=== PATIENT | female | born 1990 | race African-American/Black ===

== ENCOUNTER 2016-08-02 16:21 | Emergency (ER) | payer MEDICAID ==
[~2016-08-02] VITALS: Ht 160 cm; Wt 54.5 kg
[~2016-08-02 16:21] MED LIST: ALBU18HF INH; CYCL10TA50 PO; FIORCET; MIRENA; SERT50TA; SERT50TA5 PO; TRAM50TA2 PO
[2016-08-02 16:23] VITALS: BP 117/81
[2016-08-02] MEDS ORDERED: LIDOCAINE 1%-EPI 1:100K, 30ML ONE (18:29)
[2016-08-02] MEDS ORDERED: LIDOCAINE 1%-EPI 1:100K, 20ML SQ ONE (18:30)
[2016-08-02] MEDS ORDERED: CEFAZOLIN 1,000 MG IM ONE (19:00)
[2016-08-02] MEDS ORDERED: HYDROcodone/APAP 5/325 TABLET PO ONE (19:00)
[2016-08-02] MEDS ORDERED: IBUPROFEN 200 MG TABLET PO ONE (19:00)
[2016-08-02] MEDS ORDERED: HYDROcodone/APAP 5/325 TABLET ONE (19:07)
[2016-08-02] MEDS ORDERED: IBUPROFEN 200 MG TABLET ONE (19:07)
[2016-08-02] MEDS ORDERED: CEFAZOLIN 1,000 MG ONE (19:07)
== END 2016-08-02 19:31 | disposition home or self-care (01) ==
LOC: ED 17:34
DX: H00.031 Abscess of right upper eyelid (principal)
CPT/HCPCS: 67700; 96372; 99284; J0690; 10060; 99283

== ENCOUNTER 2016-09-20 20:14 | Emergency (ER) | payer MEDICAID ==
[~2016-09-20] VITALS: Ht 160 cm; Wt 58.1 kg
[2016-09-20 20:16] VITALS: BP 123/78
== END 2016-09-20 21:21 | disposition home or self-care (01) ==
LOC: ED 21:15
DX: L03.031 Cellulitis of right toe (principal); G43.909 Migraine, unspecified, not intractable, without status migrainosus
CPT/HCPCS: 36415; 84550

== ENCOUNTER 2017-01-28 21:03 | Emergency (ER) | payer MEDICAID ==
[~2017-01-28] VITALS: Ht 160 cm; Wt 57.0 kg
[2017-01-28 21:04] VITALS: BP 127/85
[2017-01-28] MEDS ORDERED: HYDROcodone/APAP 5/325 TABLET PO ONE (22:00)
[2017-01-28] MEDS ORDERED: HYDROcodone/APAP 5/325 TABLET ONE (22:04)
== END 2017-01-28 22:16 | disposition home or self-care (01) ==
LOC: ED 22:10
DX: S29.012A Strain of muscle and tendon of back wall of thorax, initial encounter (principal); X50.3XXA Overexertion from repetitive movements, initial encounter; Y93.89 Activity, other specified; Y92.511 Restaurant or cafe as the place of occurrence of the external cause; Y99.8 Other external cause status
CPT/HCPCS: 99282

== ENCOUNTER 2017-02-03 22:18 | Emergency (ER) | payer MEDICAID ==
[~2017-02-03] VITALS: Ht 160 cm; Wt 57.0 kg
[2017-02-03] MEDS ORDERED: DIPHENHYDRAMINE 50 MG/ML, 1ML ONE (22:59)
[2017-02-03] MEDS ORDERED: PROCHLORPERAZINE 5 MG/ML, 2ML ONE (22:59)
[2017-02-03] MEDS ORDERED: KETOROLAC 30 MG/1 ML ONE (22:59)
[2017-02-03 23:00] LABS: HEMATOCRIT 41.1 % (34.6-47.8); HEMOGLOBIN 13.3 g/dL (11.7-16.4)
[2017-02-03] MEDS ORDERED: SODIUM CHLORIDE FLUSH 10ML SYR IVF ONE (23:00)
[2017-02-03] MEDS ORDERED: KETOROLAC 30 MG/1 ML IVPush ONE (23:00)
[2017-02-03] MEDS ORDERED: DIPHENHYDRAMINE 50 MG/ML, 1ML IVPush ONE (23:00)
[2017-02-03] MEDS ORDERED: PROCHLORPERAZINE 5 MG/ML, 2ML IVPush ONE (23:00)
[2017-02-03] MEDS ORDERED: SODIUM CHLORIDE 0.9% 1,000ML IVBOLUS ONE (23:00)
[2017-02-03 23:09] LABS: ASPARTATE AMINO TRANSFERASE 17 U/L (15-37); BLOOD UREA NITROGEN 12 mg/dL (7-18)
[2017-02-04 00:39] VITALS: BP 124/84
== END 2017-02-04 00:41 | disposition home or self-care (01) ==
LOC: ED 23:21
DX: R10.84 Generalized abdominal pain (principal); R11.2 Nausea with vomiting, unspecified; R51 Headache; M19.90 Unspecified osteoarthritis, unspecified site; J45.909 Unspecified asthma, uncomplicated
CPT/HCPCS: 36415; 80053; 81003; 83690; 84703; 85025; 96361; 96374; 96375; 99284; J0780; J1200; J1885; J7030

== ENCOUNTER 2017-04-25 17:36 | Emergency (ER) | payer MEDICAID ==
[~2017-04-25] VITALS: Ht 167.6 cm; Wt 58.4 kg
[2017-04-25] MEDS ORDERED: ONDANSETRON 2MG/ML, 2ML IVPush ONE (18:00)
[2017-04-25] MEDS ORDERED: SODIUM CHLORIDE 0.9% 1,000ML IVBOLUS ONE (18:00)
[2017-04-25] MEDS ORDERED: MORPHINE SULFATE 4 MG/ML, 1ML IVPush PRN (18:00)
[2017-04-25] MEDS ORDERED: SODIUM CHLORIDE FLUSH 10ML SYR IVF ONE (18:00)
[2017-04-25] MEDS ORDERED: MORPHINE SULFATE 4 MG/ML, 1ML ONE (18:08)
[2017-04-25] MEDS ORDERED: ONDANSETRON 2MG/ML, 2ML ONE (18:09)
[2017-04-25 18:14] LABS: HEMATOCRIT 43.6 % (34.6-47.8); HEMOGLOBIN 14.3 g/dL (11.7-16.4); WHITE BLOOD COUNT 6.4 x10^3/uL (3.4-10)
[2017-04-25 18:27] LABS: BLOOD UREA NITROGEN 13 mg/dL (7-18)
[2017-04-25 19:57] LABS: PATH.CAST-FLAG NOT PRESENT; SPERM-FLAG NOT PRESENT; SRC-FLAG NOT PRESENT; XTAL-FLAG NOT PRESENT; YLC-FLAG NOT PRESENT
[2017-04-25 20:54] VITALS: BP 119/83
== END 2017-04-25 20:56 | disposition home or self-care (01) ==
LOC: ED 20:20
DX: R10.32 Left lower quadrant pain (principal); R19.7 Diarrhea, unspecified; G43.909 Migraine, unspecified, not intractable, without status migrainosus; G89.29 Other chronic pain
CPT/HCPCS: 36415; 76830; 80048; 81001; 82040; 84703; 85025; 96361; 96374; 96375; 99285; J2405; J7030

== ENCOUNTER 2017-07-23 20:32 | Emergency (ER) | payer MEDICAID ==
[~2017-07-23] VITALS: Ht 160 cm; Wt 56.6 kg
[2017-07-23] MEDS ORDERED: SUMA100T3 PO (22:07)
[2017-07-23] MEDS ORDERED: NORT25CA PO (22:07)
[2017-07-23 22:22] LABS: CULTURE INDICATED? YES; MICROSCOPIC INDICATED
[2017-07-23] MEDS ORDERED: ONDANSETRON ODT 8 MG PO ONE (22:30)
[2017-07-23] MEDS ORDERED: ONDANSETRON ODT 8 MG ONE (22:31)
[2017-07-23 23:18] VITALS: BP 114/78
[2017-07-23 23:19] LABS: HCG UR SG < 1.005 (1.003-1.030)
== END 2017-07-23 23:20 | disposition home or self-care (01) ==
LOC: ED 22:52
DX: N30.90 Cystitis, unspecified without hematuria (principal); G43.909 Migraine, unspecified, not intractable, without status migrainosus; J45.909 Unspecified asthma, uncomplicated
CPT/HCPCS: 81001; 81025; 87077; 87086; 99284; Q0162; 87186

== ENCOUNTER 2017-09-11 12:11 | Emergency (ER) | payer MEDICAID ==
[~2017-09-11] VITALS: Ht 160 cm; Wt 55.6 kg
[~2017-09-11 12:11] MED LIST changes: +NORT25CA PO; +SUMA100T3 PO
[2017-09-11] MEDS ORDERED: OXYcodone/APAP 10/325MG TABLET ONE (13:15)
[2017-09-11] MEDS ORDERED: ONDANSETRON ODT 4 MG ONE (13:15)
[2017-09-11] MEDS ORDERED: KETOROLAC 30 MG/1 ML ONE (13:15)
[2017-09-11] MEDS ORDERED: ONDANSETRON ODT 4 MG PO ONE (13:30)
[2017-09-11] MEDS ORDERED: OXYcodone/APAP 10/325MG TABLET PO ONE (13:30)
[2017-09-11] MEDS ORDERED: KETOROLAC 60 MG/2 ML IM ONE (13:30)
[2017-09-11 14:11] VITALS: BP 129/89
== END 2017-09-11 14:25 | disposition home or self-care (01) ==
LOC: ED 14:18
DX: R10.9 Unspecified abdominal pain (principal); R11.0 Nausea; G89.29 Other chronic pain; G43.909 Migraine, unspecified, not intractable, without status migrainosus
CPT/HCPCS: 96372; 99283; J1885; Q0162

== ENCOUNTER 2017-09-21 13:02 | Emergency (ER) | payer MEDICAID ==
[~2017-09-21] VITALS: Ht 160 cm; Wt 56.3 kg
[2017-09-21] MEDS ORDERED: KETOROLAC 30 MG/1 ML IM ONE (16:30)
[2017-09-21 16:44] LABS: BASOPHILS # (AUTO) 0.03 x10^3/uL (0-0.1); BASOPHILS % (AUTO) 1 % (0-1); EOSINOPHILS # (AUTO) 0.04 x10^3/uL (0-0.4); EOSINOPHILS % (AUTO) 1 % (1-7); LYMPHOCYTES # (AUTO) 1.91 x10^3/uL (1-3.4); LYMPHOCYTES % (AUTO) 31 % (22-44); MD NO; MEAN CORPUSCULAR HEMOGLOBIN 25.9 pg (27.0-34.8); MEAN CORPUSCULAR HGB CONC 32.3 g/dL (32.4-35.8); MEAN CORPUSCULAR VOLUME 80.1 fL (80-100); MEAN PLATELET VOLUME 8.7 fL (7.4-10.4); MONOCYTES # (AUTO) 0.42 x10^3/uL (0.2-0.8); MONOCYTES % (AUTO) 7 % (2-9); NEUTROPHILS # (AUTO) 3.82 x10^3/uL (1.8-6.8); NEUTROPHILS % (AUTO) 61 % (42-75); PLATELET COUNT 290 x10^3/uL (130-400); RED BLOOD COUNT 5.04 x10^6/uL (3.82-5.3)
[2017-09-21 16:55] LABS: ALANINE AMINOTRANSFERASE 13 U/L (12-78); ALBUMIN 3.9 g/dL (3.4-5.0); ANION GAP 8 mmol/L (5-15); CALCIUM 9.5 mg/dL (8.5-10.1); CHLORIDE 105 mmol/L (98-107)
[2017-09-21 16:59] LABS: ALKALINE PHOSPHATASE 72 U/L (45-117); BILIRUBIN,TOTAL 0.3 mg/dL (0.2-1.0); TOTAL PROTEIN 8.5 g/dL (6.4-8.2)
[2017-09-21] MEDS ORDERED: KETOROLAC 30 MG/1 ML ONE (17:17)
[2017-09-21 17:25] LABS: CULTURE INDICATED? NO; MICROSCOPIC AUTO
[2017-09-21 17:59] VITALS: BP 119/80
== END 2017-09-21 18:14 | disposition home or self-care (01) ==
LOC: ED 18:00
DX: R10.84 Generalized abdominal pain (principal); R10.30 Lower abdominal pain, unspecified; M19.90 Unspecified osteoarthritis, unspecified site; G89.29 Other chronic pain; M79.7 Fibromyalgia; J45.909 Unspecified asthma, uncomplicated; G43.909 Migraine, unspecified, not intractable, without status migrainosus
CPT/HCPCS: 36415; 76830; 80053; 81001; 83690; 84703; 85025; 96372; 99285; J1885

== ENCOUNTER 2017-10-30 21:52 | Emergency (ER) | payer MEDICAID ==
[~2017-10-30] VITALS: Ht 160 cm; Wt 53.4 kg
[2017-10-30 21:56] VITALS: BP 124/85
== END 2017-10-30 22:42 | disposition home or self-care (01) ==
LOC: ED 22:15
DX: H00.022 Hordeolum internum right lower eyelid (principal); M79.7 Fibromyalgia; G89.29 Other chronic pain
CPT/HCPCS: 99283

== ENCOUNTER 2017-11-18 17:49 | Emergency (ER) | payer MEDICAID ==
[~2017-11-18] VITALS: Ht 160 cm; Wt 51.6 kg
[2017-11-18 17:53] VITALS: BP 121/78
== END 2017-11-18 18:57 | disposition home or self-care (01) ==
LOC: ED 18:51
DX: L02.412 Cutaneous abscess of left axilla (principal); G43.909 Migraine, unspecified, not intractable, without status migrainosus
CPT/HCPCS: 99283

== ENCOUNTER → 2018-01-02 | Outpatient (CLI) | payer MEDICAID ==
[~2018-01-02] MED LIST changes: +GABA100C PO; +GABAPENTIN PO; +IBUP200T49 PO; +OXYC-302 PO; +SUMA100T4 PO
== END | disposition home or self-care (01) ==
LOC: STAR 10:26
PROVIDERS: ATTEND Obstetrics & Gynecology
DX: Z02.9 Encounter for administrative examinations, unspecified (principal)

== ENCOUNTER 2018-01-11 05:42 | Observation (INO) | payer MEDICAID ==
[~2018-01-11] VITALS: Ht 160 cm; Wt 59.6 kg
[~2018-01-11 05:42] MED LIST changes: -IBUP200T49 PO; -OXYC-302 PO
[2018-01-11 06:24] VITALS: BP 123/87
[2018-01-11] MEDS ORDERED: LACTATED RINGERS 1,000 ML IV SCH (06:27)
[2018-01-11 06:58] LABS: HCG UR SG 1.016 (1.003-1.030)
[2018-01-11] MEDS ORDERED: VASOPRESSIN 20 UNIT/ML, 1ML ONE (07:07)
[2018-01-11] MEDS ORDERED: FENTANYL PF 100 MCG/2ML ONE ×2 (07:07→08:48)
[2018-01-11] MEDS ORDERED: SILVER NITRATE STICK TP ONE (07:07)
[2018-01-11] MEDS ORDERED: MIDAZOLAM 1 MG/ML, 2ML ONE (07:07)
[2018-01-11] MEDS ORDERED: KETAMINE 10 MG/ML, 20ML ONE (07:07)
[2018-01-11] MEDS ORDERED: BUPIVACAINE/PF-EPI 0.25% 1:200K ONE (07:07)
[2018-01-11] MEDS ORDERED: NEOSTIGMINE 1 MG/ML, 10ML ONE (07:27)
[2018-01-11] MEDS ORDERED: GLYCOPYRROLATE 0.2MG/1ML, 5ML ONE (07:27)
[2018-01-11] MEDS ORDERED: ONDANSETRON 2MG/ML, 2ML ONE (07:27)
[2018-01-11] MEDS ORDERED: KETOROLAC 30 MG/1 ML ONE (07:27)
[2018-01-11] MEDS ORDERED: ROCURONIUM 10 MG/ML,10ML ONE (07:27)
[2018-01-11] MEDS ORDERED: SUCCINYLCHOLINE 20 MG/ML, 10ML ONE (07:27)
[2018-01-11] MEDS ORDERED: DEXAMETHASONE 4 MG/ML, 1ML ONE (07:27)
[2018-01-11] MEDS ORDERED: PROPOFOL 10 MG/ML, 20ML ONE (07:27)
[2018-01-11] MEDS ORDERED: CEFAZOLIN 1,000 MG ONE (07:27)
[2018-01-11] MEDS ORDERED: GABAPENTIN 300 MG CAPSULE PO ONE (07:30)
[2018-01-11] MEDS ORDERED: METOCLOPRAMIDE 10MG TABLET PO ONE (07:30)
[2018-01-11] MEDS ORDERED: FAMOTIDINE 20 MG TABLET PO ONE (07:30)
[2018-01-11] MEDS ORDERED: ACETAMINOPHEN 500 MG TABLET PO ONE (07:30)
[2018-01-11] MEDS ORDERED: MEPERIDINE/PF 25MG/0.5ML IVPush PRN (08:00)
[2018-01-11] MEDS ORDERED: PROMETHAZINE 25 MG/ML, 1ML IV PRN (08:00)
[2018-01-11] MEDS ORDERED: ALBUTEROL SULFATE 2.5 MG/3 ML NPPB PRN (08:00)
[2018-01-11] MEDS: OXYcodone 5 MG/5 ML ORAL.SOL UDC PO PRN ×2 (08:48→09:08)
[2018-01-11] MEDS ORDERED: OXYcodone 5 MG/5 ML ORAL.SOL UDC ONE ×2 (08:48→09:07)
[2018-01-11] MEDS: FENTANYL PF 100 MCG/2ML IV PRN ×2 (08:50→09:05)
[2018-01-11] MEDS ORDERED: LORazepam 2 MG/ML, 1ML ONE (08:58)
[2018-01-11] MEDS: LORazepam 2 MG/ML, 1ML IVPush PRN ×2 (09:00→09:12)
[2018-01-11] MEDS ORDERED: MEPERIDINE/PF 50 MG/ML ONE (09:07)
[2018-01-11] MEDS ORDERED: OXYcodone/APAP 5/325MG TABLET PO PRN (13:00)
[2018-01-11 16:06] LABS: BASOPHILS % (AUTO) 0 % (0-1); EOSINOPHILS % (AUTO) 0 % (1-7); LYMPHOCYTES # (AUTO) 0.51 x10^3/uL (1-3.4); LYMPHOCYTES % (AUTO) 6 % (22-44); MD NO; MEAN CORPUSCULAR HEMOGLOBIN 27.6 pg (27.0-34.8); MEAN CORPUSCULAR HGB CONC 32.9 g/dL (32.4-35.8); MEAN PLATELET VOLUME 8.5 fL (7.4-10.4); MONOCYTES # (AUTO) 0.04 x10^3/uL (0.2-0.8); MONOCYTES % (AUTO) 0 % (2-9); NEUTROPHILS # (AUTO) 8.54 x10^3/uL (1.8-6.8); NEUTROPHILS % (AUTO) 94 % (42-75); PLATELET COUNT 260 x10^3/uL (130-400); RED BLOOD COUNT 4.02 x10^6/uL (3.82-5.3)
[2018-01-11 16:08] LABS: ANION GAP 8 mmol/L (5-15); CALCIUM 8.5 mg/dL (8.5-10.1); CHLORIDE 108 mmol/L (98-107); CREATININE 0.93 mg/dL (0.55-1.02)
[2018-01-11] MEDS ORDERED: ONDANSETRON ODT 4 MG PO PRN (16:30)
[2018-01-11] MEDS ORDERED: LABETALOL 5MG/ML, 20ML IVPush PRN (16:30)
[2018-01-11] MEDS ORDERED: IBUPROFEN 600 MG TABLET ONE (16:39)
[2018-01-11] MEDS ORDERED: OXYcodone/APAP 5/325MG TABLET ONE (16:39)
[2018-01-11] MEDS ORDERED: OXYcodone/APAP 5/325MG TABLET PO ONE (17:00)
[2018-01-11] MEDS ORDERED: IBUPROFEN 200 MG TABLET PO ONE (17:00)
[2018-01-11 18:30] VITALS: BP 111/58
[2018-01-11 19:00] LABS: AMPHETAMINE SCREEN, URINE Negative (Negative); BARBITURATE SCREEN, URINE Negative (Negative); BENZODIAZEPINE SCREEN, URINE Positive (Negative); CANNABINOID SCREEN, URINE Negative (Negative); COCAINE SCREEN, URINE Negative (Negative); METHADONE SCREEN, URINE Negative (Negative); OPIATE SCREEN, URINE Negative (Negative)
[2018-01-11 20:10] VITALS: BP 99/58
[2018-01-11] MEDS: morphine SULFATE 10 MG/ML, 1ML IVPush PRN (20:29)
[2018-01-11] MEDS: NS + 20MEQ KCL 1,000 ML IV SCH (20:29)
[2018-01-11 21:27] LABS: AMPHETAMINE SCREEN, URINE Negative (Negative); BARBITURATE SCREEN, URINE Negative (Negative); BENZODIAZEPINE SCREEN, URINE Positive (Negative); CANNABINOID SCREEN, URINE Negative (Negative); COCAINE SCREEN, URINE Negative (Negative); METHADONE SCREEN, URINE Negative (Negative); OPIATE SCREEN, URINE Positive (Negative)
[2018-01-12 02:00] VITALS: BP 106/58
[2018-01-12] MEDS: NS + 20MEQ KCL 1,000 ML IV SCH ×2 (03:05→10:50)
[2018-01-12] MEDS: morphine SULFATE 10 MG/ML, 1ML IVPush PRN ×3 (05:46→09:45)
[2018-01-12 08:43] VITALS: BP 124/85
[2018-01-12] MEDS ORDERED: SUMATRIPTAN 100 MG TABLET PO PRN (10:00)
[2018-01-12] MEDS ORDERED: NORTRIPTYLINE 25 MG CAPSULE PO SCH (10:00)
[2018-01-12 10:55] LABS: FREE T4 (FREE THYROXINE) 1.11 ng/dL (0.76-1.46); THYROID STIMULATING HORMONE 0.558 mIU/L (0.358-3.740)
[2018-01-12] MEDS ORDERED: IBUP200T49 PO (13:33)
[2018-01-12] MEDS ORDERED: OXYC-302 PO (13:33)
[2018-01-12 13:37] VITALS: BP 123/86
[2018-01-12] MEDS ORDERED: GABAPENTIN 100 MG CAPSULE PO SCH (16:00)
== END 2018-01-12 14:07 | disposition home or self-care (01) ==
LOC: OUT 05:42 → ORIP 16:14 → 4WST 17:18
PROVIDERS: ADMIT Obstetrics & Gynecology; ATTEND Obstetrics & Gynecology
DX: N83.291 Other ovarian cyst, right side (principal); N80.1 Endometriosis of ovary; N80.0 Endometriosis of uterus; J45.909 Unspecified asthma, uncomplicated; R00.0 Tachycardia, unspecified; F41.9 Anxiety disorder, unspecified; I10 Essential (primary) hypertension; N92.6 Irregular menstruation, unspecified
CPT/HCPCS: 36415; 58662; 80048; 80307; 81025; 82533; 83735; 84439; 84443; 84481; 85025; 85379; 93005; 96374; 96376; G0378; J0330; J0690; J1100; J1885; J2060; J2175; J2250; J2270; J2405; J2704; J2710; J3010; J3480; J3490

== ENCOUNTER 2018-01-27 18:31 | Emergency (ER) | payer MEDICAID ==
[~2018-01-27] VITALS: Ht 160 cm; Wt 52.0 kg
[~2018-01-27 18:31] MED LIST changes: +IBUP200T49 PO; +OXYC-302 PO
[2018-01-27] MEDS ORDERED: CEFDINIR 125 MG/5 ML, ORAL SUSP ONE (18:42)
[2018-01-27] MEDS ORDERED: SODIUM CHLORIDE 0.9% 1,000ML IVBOLUS ONE (19:00)
[2018-01-27 19:07] LABS: BASOPHILS # (AUTO) 0.03 x10^3/uL (0-0.1); BASOPHILS % (AUTO) 0 % (0-1); EOSINOPHILS # (AUTO) 0.11 x10^3/uL (0-0.4); EOSINOPHILS % (AUTO) 1 % (1-7); LYMPHOCYTES # (AUTO) 1.91 x10^3/uL (1-3.4); LYMPHOCYTES % (AUTO) 24 % (22-44); MD NO; MEAN CORPUSCULAR HEMOGLOBIN 28.7 pg (27.0-34.8); MEAN CORPUSCULAR HGB CONC 33.4 g/dL (32.4-35.8); MEAN CORPUSCULAR VOLUME 85.9 fL (80-100); MEAN PLATELET VOLUME 8.5 fL (7.4-10.4); MONOCYTES # (AUTO) 1.02 x10^3/uL (0.2-0.8); MONOCYTES % (AUTO) 13 % (2-9); NEUTROPHILS # (AUTO) 4.91 x10^3/uL (1.8-6.8); NEUTROPHILS % (AUTO) 62 % (42-75); PLATELET COUNT 261 x10^3/uL (130-400); RED BLOOD COUNT 4.41 x10^6/uL (3.82-5.3)
[2018-01-27 19:14] LABS: ALBUMIN 3.4 g/dL (3.4-5.0); ANION GAP 8 mmol/L (5-15); CALCIUM 8.5 mg/dL (8.5-10.1); CHLORIDE 111 mmol/L (98-107); CREATININE 0.93 mg/dL (0.55-1.02)
[2018-01-27 19:23] LABS: TROPONIN I < 0.015 ng/mL (0.000-0.045)
[2018-01-27 19:47] VITALS: BP 126/88
== END 2018-01-27 20:35 | disposition home or self-care (01) ==
LOC: ED 19:21
DX: R00.0 Tachycardia, unspecified (principal); R00.2 Palpitations; M54.9 Dorsalgia, unspecified; G89.29 Other chronic pain; G43.909 Migraine, unspecified, not intractable, without status migrainosus; F32.9 Major depressive disorder, single episode, unspecified; J45.909 Unspecified asthma, uncomplicated; F41.1 Generalized anxiety disorder
CPT/HCPCS: 36415; 71275; 80048; 82040; 84484; 84703; 85025; 96360; 99285; J7030

== ENCOUNTER 2018-01-28 01:56 | Emergency (ER) | payer MEDICAID ==
[~2018-01-28] VITALS: Ht 160 cm; Wt 52.0 kg
[2018-01-28 03:17] LABS: BASOPHILS # (AUTO) 0.04 x10^3/uL (0-0.1); BASOPHILS % (AUTO) 1 % (0-1); EOSINOPHILS # (AUTO) 0.14 x10^3/uL (0-0.4); EOSINOPHILS % (AUTO) 2 % (1-7); LYMPHOCYTES # (AUTO) 2.69 x10^3/uL (1-3.4); LYMPHOCYTES % (AUTO) 31 % (22-44); MD NO; MEAN CORPUSCULAR HEMOGLOBIN 28.3 pg (27.0-34.8); MEAN CORPUSCULAR HGB CONC 32.6 g/dL (32.4-35.8); MEAN CORPUSCULAR VOLUME 86.7 fL (80-100); MEAN PLATELET VOLUME 8.1 fL (7.4-10.4); MONOCYTES # (AUTO) 0.95 x10^3/uL (0.2-0.8); MONOCYTES % (AUTO) 11 % (2-9); NEUTROPHILS % (AUTO) 56 % (42-75); PLATELET COUNT 258 x10^3/uL (130-400)
[2018-01-28 03:28] LABS: ALBUMIN 3.3 g/dL (3.4-5.0); ANION GAP 4 mmol/L (5-15); CALCIUM 8.6 mg/dL (8.5-10.1); CHLORIDE 110 mmol/L (98-107); CREATININE 0.78 mg/dL (0.55-1.02)
[2018-01-28 03:33] LABS: TROPONIN I < 0.015 ng/mL (0.000-0.045)
[2018-01-28 04:01] VITALS: BP 120/80
== END 2018-01-28 04:13 | disposition home or self-care (01) ==
LOC: ED 02:54
DX: R07.2 Precordial pain (principal); F32.9 Major depressive disorder, single episode, unspecified; M19.90 Unspecified osteoarthritis, unspecified site
CPT/HCPCS: 36415; 80048; 82040; 83735; 84484; 84703; 85025; 93005; 99285

== ENCOUNTER 2018-02-15 02:00 | Emergency (ER) | payer MEDICAID ==
[~2018-02-15] VITALS: Ht 160 cm; Wt 56.0 kg
[2018-02-15 02:56] LABS: ALANINE AMINOTRANSFERASE 13 U/L (12-78); ALBUMIN 3.6 g/dL (3.4-5.0); ANION GAP 5 mmol/L (5-15); BASOPHILS # (AUTO) 0.03 x10^3/uL (0-0.1); BASOPHILS % (AUTO) 1 % (0-1); CALCIUM 8.4 mg/dL (8.5-10.1); CHLORIDE 110 mmol/L (98-107); CREATININE 0.76 mg/dL (0.55-1.02); EOSINOPHILS # (AUTO) 0.07 x10^3/uL (0-0.4); EOSINOPHILS % (AUTO) 1 % (1-7); LYMPHOCYTES # (AUTO) 1.67 x10^3/uL (1-3.4); LYMPHOCYTES % (AUTO) 27 % (22-44); MD NO; MEAN CORPUSCULAR HEMOGLOBIN 28.3 pg (27.0-34.8); MEAN CORPUSCULAR HGB CONC 32.8 g/dL (32.4-35.8); MEAN CORPUSCULAR VOLUME 86.5 fL (80-100); MEAN PLATELET VOLUME 9.3 fL (7.4-10.4); MONOCYTES # (AUTO) 0.73 x10^3/uL (0.2-0.8); MONOCYTES % (AUTO) 12 % (2-9); NEUTROPHILS # (AUTO) 3.78 x10^3/uL (1.8-6.8); NEUTROPHILS % (AUTO) 60 % (42-75); PLATELET COUNT 234 x10^3/uL (130-400); RED BLOOD COUNT 4.85 x10^6/uL (3.82-5.3)
[2018-02-15 03:01] LABS: ALKALINE PHOSPHATASE 75 U/L (45-117); BILIRUBIN,TOTAL 0.2 mg/dL (0.2-1.0)
[2018-02-15 03:25] LABS: CULTURE INDICATED? NO; MICROSCOPIC NOT IND
[2018-02-15] MEDS ORDERED: ONDANSETRON ODT 4 MG PO ONE (03:30)
[2018-02-15] MEDS ORDERED: ONDANSETRON ODT 4 MG ONE (03:32)
[2018-02-15 03:37] VITALS: BP 119/71
== END 2018-02-15 04:11 | disposition home or self-care (01) ==
LOC: ED 03:26
DX: R10.30 Lower abdominal pain, unspecified (principal); N93.9 Abnormal uterine and vaginal bleeding, unspecified; M54.5 Low back pain; G89.29 Other chronic pain
CPT/HCPCS: 36415; 76830; 80053; 81003; 84703; 85025; 99285; Q0162

== ENCOUNTER 2018-02-23 16:57 | Emergency (ER) | payer MEDICAID ==
[~2018-02-23] VITALS: Ht 160 cm; Wt 53.3 kg
[2018-02-23] MEDS ORDERED: SODIUM CHLORIDE FLUSH 10ML SYR IVF ONE (18:00)
[2018-02-23] MEDS ORDERED: KETOROLAC 30 MG/1 ML IVPush ONE (18:00)
[2018-02-23] MEDS ORDERED: METOCLOPRAMIDE 5 MG/ML, 2ML IVPush ONE (18:00)
[2018-02-23] MEDS ORDERED: SODIUM CHLORIDE 0.9% 1,000ML IVBOLUS ONE (18:00)
[2018-02-23] MEDS ORDERED: DIPHENHYDRAMINE 50 MG/ML, 1ML IVPush ONE (18:00)
[2018-02-23] MEDS ORDERED: KETOROLAC 30 MG/1 ML ONE (18:34)
[2018-02-23] MEDS ORDERED: METOCLOPRAMIDE 5 MG/ML, 2ML ONE (18:34)
[2018-02-23] MEDS ORDERED: DIPHENHYDRAMINE 50 MG/ML, 1ML ONE (18:58)
[2018-02-23] MEDS ORDERED: BICILLIN-LA 1,200,000 UNITS/2 ML IM ONE (19:30)
[2018-02-23 21:03] VITALS: BP 109/69
== END 2018-02-23 21:28 | disposition home or self-care (01) ==
LOC: ED 18:32
DX: J02.0 Streptococcal pharyngitis (principal); G43.C0 Periodic headache syndromes in child or adult, not intractable
CPT/HCPCS: 87880; 96372; 96374; 96375; 99285; J0561; J1200; J1885; J2765; J7030

== ENCOUNTER 2018-03-30 04:43 | Emergency (ER) | payer MEDICAID ==
[~2018-03-30] VITALS: Ht 160 cm; Wt 58.0 kg
[2018-03-30 04:44] VITALS: BP 132/92
[2018-03-30] MEDS ORDERED: DEPAKOTE (04:49)
== END 2018-03-30 05:28 | disposition home or self-care (01) ==
LOC: ED 05:22
DX: T40.4X1A Poisoning by other synthetic narcotics, accidental (unintentional), initial encounter (principal); F32.9 Major depressive disorder, single episode, unspecified; Y92.89 Other specified places as the place of occurrence of the external cause
CPT/HCPCS: 99281

== ENCOUNTER 2018-05-15 01:42 | Emergency (ER) | payer MEDICAID ==
[~2018-05-15] VITALS: Ht 160 cm; Wt 59.7 kg
[~2018-05-15 01:42] MED LIST changes: +DEPAKOTE; -NORT25CA PO; +NORT25CA78 PO
[2018-05-15 01:45] VITALS: BP 132/87
--- NOTE | 2018-05-15 01:54 | NUR ---
CALLED [facility] ON PT. BEHALF; THEY WILL SENT A UNIT OVER SOON ABLE PER DISPATCH.
--- NOTE | 2018-05-15 02:05 | NUR ---
PT TO ROOM PA TO BEDSIDE. PT AWAITING [facility]
--- NOTE | 2018-05-15 02:36 | NUR ---
[facility] TO BEDSIDE.
== END 2018-05-15 03:24 | disposition home or self-care (01) ==
LOC: ED 01:53
DX: T74.21XA Adult sexual abuse, confirmed, initial encounter (principal); F32.9 Major depressive disorder, single episode, unspecified; J45.909 Unspecified asthma, uncomplicated; M19.90 Unspecified osteoarthritis, unspecified site; Z87.42 Personal history of other diseases of the female genital tract; Y07.9 Unspecified perpetrator of maltreatment and neglect
CPT/HCPCS: 99284

== ENCOUNTER 2018-05-28 17:25 | Emergency (ER) | payer MEDICAID ==
[~2018-05-28] VITALS: Ht 162.6 cm; Wt 56.0 kg
[~2018-05-28 17:25] MED LIST changes: +SERT50TA28 PO; -SERT50TA5 PO
--- NOTE | 2018-05-28 18:01 | NUR ---
pa to bedside for assessment.
--- NOTE | 2018-05-28 18:09 | NUR ---
PT TO ED FOR BILATERAL CHEST PAIN EPISODES X 3 DAYS. PAIN WORSE WITH DEEP BREATHS AND MOVEMENT. NO RELIEVEING FACTORS. INHALER HAD NO EFFECT. CONNECTED TO MONITORS. VSS. LABS DRAWN. AWAITING RESULTS. CALL LIGHT WITHIN REACH.
[2018-05-28 18:12] LABS: BASOPHILS # (AUTO) 0.05 x10^3/uL (0-0.1); BASOPHILS % (AUTO) 1 % (0-1); EOSINOPHILS # (AUTO) 0.01 x10^3/uL (0-0.4); EOSINOPHILS % (AUTO) 0 % (1-7); LYMPHOCYTES % (AUTO) 22 % (22-44); MD NO; MEAN CORPUSCULAR HEMOGLOBIN 28.6 pg (27.0-34.8); MEAN CORPUSCULAR HGB CONC 32.6 g/dL (32.4-35.8); MEAN CORPUSCULAR VOLUME 87.6 fL (80-100); MEAN PLATELET VOLUME 9.3 fL (7.4-10.4); MONOCYTES # (AUTO) 0.93 x10^3/uL (0.2-0.8); MONOCYTES % (AUTO) 11 % (2-9); NEUTROPHILS # (AUTO) 5.58 x10^3/uL (1.8-6.8); NEUTROPHILS % (AUTO) 67 % (42-75); PLATELET COUNT 277 x10^3/uL (130-400); RED CELL DISTRIBUTION WIDTH 17.1 % (9.6-15.2)
[2018-05-28] MEDS ORDERED: ASPIRIN 81 MG TABLET CHEW ONE (18:13)
[2018-05-28 18:19] LABS: ALBUMIN 3.6 g/dL (3.4-5.0); ANION GAP 8 mmol/L (5-15); CALCIUM 8.7 mg/dL (8.5-10.1); CHLORIDE 106 mmol/L (98-107)
[2018-05-28 18:23] LABS: TROPONIN I < 0.015 ng/mL (0.000-0.045)
--- NOTE | 2018-05-28 18:23 | NUR ---
ua collected and sent. iv placed. pt resting in bed wtih family at bedside. call light within reach. vss.
[2018-05-28] MEDS ORDERED: ASPIRIN 81 MG TABLET CHEW PO ONE (18:30)
[2018-05-28 18:40] LABS: HCG UR SG 1.012 (1.003-1.030); MICROSCOPIC AUTO
[2018-05-28 18:41] LABS: CULTURE INDICATED? YES
--- NOTE | 2018-05-28 18:57 | NUR ---
pt to cta
--- NOTE | 2018-05-28 18:59 | NUR ---
pt back from ct
[2018-05-28] MEDS ORDERED: PLEASE ENTER WEIGHT MC SCH (19:00)
[2018-05-28] MEDS ORDERED: KETOROLAC 30 MG/1 ML IVPush ONE (19:00)
[2018-05-28] MEDS ORDERED: KETOROLAC 30 MG/1 ML ONE (19:01)
[2018-05-28] MEDS ORDERED: OMNIPAQUE 350 MG/ML, 100ML BOTTLE ONE (19:09)
[2018-05-28 19:15] VITALS: BP 120/81
--- NOTE | 2018-05-28 19:16 | NUR ---
PT MEDICATED PER JUL. VSS AT THIS TIME, PT REPORTING PAIN 8/10 WITH DEEP BREATHING. FAMILY AT BEDSIDE. CALL LIGHT WITHIN REACH. AWAITING TEST RESULTS AT THIS TIME
--- NOTE | 2018-05-28 19:26 | NUR ---
PA TO BEDSIDE TO UPDATE PT ON POC
--- NOTE | 2018-05-28 19:29 | NUR ---
ALL RESULTS BACK AT THIS TIME, CHART UP FOR RECHECK
[2018-05-28] MEDS ORDERED: ALBUTEROL/IPRATROPIUM 2.5MG/0.5MG, 3 ML ONE (19:55)
--- NOTE | 2018-05-28 19:58 | NUR ---
RT TO BEDSIDE FOR TX.
[2018-05-28] MEDS ORDERED: methylPREDNISolone SOD SUCC 125 MG/2 ML IVPush SCH (20:00)
[2018-05-28] MEDS ORDERED: ALBUTEROL/IPRATROPIUM 2.5MG/0.5MG, 3 ML NEB ONE (20:00)
[2018-05-28] MEDS ORDERED: METHOCARBAMOL 750 MG TABLET PO ONE (20:00)
[2018-05-28] MEDS ORDERED: METHOCARBAMOL 750 MG TABLET ONE (20:01)
[2018-05-28] MEDS ORDERED: methylPREDNISolone SOD SUCC 125 MG/2 ML ONE (20:02)
== END 2018-05-28 20:16 | disposition home or self-care (01) ==
LOC: ED 17:51
DX: J45.41 Moderate persistent asthma with (acute) exacerbation (principal); R09.1 Pleurisy
CPT/HCPCS: 36415; 71045; 71275; 80048; 81001; 81025; 82040; 83880; 84484; 85025; 87086; 93005; 94640; 96374; 96375; 99284; J1885; J2930; Q9967

== ENCOUNTER 2018-06-01 23:35 | Emergency (ER) | payer MEDICAID ==
[~2018-06-01] VITALS: Ht 162.6 cm; Wt 67.3 kg
[2018-06-02 00:08] LABS: MEAN CORPUSCULAR HEMOGLOBIN 28.8 pg (27.0-34.8); MEAN CORPUSCULAR HGB CONC 32.8 g/dL (32.4-35.8); MEAN CORPUSCULAR VOLUME 87.9 fL (80-100); MEAN PLATELET VOLUME 8.9 fL (7.4-10.4); PLATELET COUNT 306 x10^3/uL (130-400); RED BLOOD COUNT 4.43 x10^6/uL (3.82-5.3); RED CELL DISTRIBUTION WIDTH 16.9 % (9.6-15.2)
--- NOTE | 2018-06-02 00:08 | NUR ---
PT IN IMAGING
[2018-06-02 00:15] LABS: ALANINE AMINOTRANSFERASE 19 U/L (12-78); ALBUMIN 3.4 g/dL (3.4-5.0); ANION GAP 11 mmol/L (5-15); CALCIUM 8.5 mg/dL (8.5-10.1); CHLORIDE 102 mmol/L (98-107); CREATININE 1.37 mg/dL (0.55-1.02)
[2018-06-02 00:19] LABS: ALKALINE PHOSPHATASE 55 U/L (45-117); BILIRUBIN,TOTAL 0.5 mg/dL (0.2-1.0); TOTAL PROTEIN 6.9 g/dL (6.4-8.2)
[2018-06-02 00:21] LABS: MD YES
[2018-06-02 00:22] LABS: LYMPH#(MANUAL) 1.58 x10^3/uL (1-3.4); LYMPHS% (MANUAL) 9 % (22-44); MONOS#(MANUAL) 2.46 x10^3/uL (0.3-2.7); MONOS% (MANUAL) 14 % (2-9); NRBC % (MANUAL) 1 % (0-1); SEG#(MANUAL) 13.55 x10^3/uL (1.8-6.8); SEGS% (MANUAL) 77 % (42-75)
[2018-06-02 00:23] LABS: <PLATELET ESTIMATE> ADEQUATE; <PLT MORPHOLOGY> NORMAL PLT MORPH; ANISOCYTOSIS 1+; POLYCHROMASIA 1+
--- NOTE | 2018-06-02 00:23 | NUR ---
LUNCH RN: Pt still not in room.
[2018-06-02 00:25] LABS: PMNS WITH VACUOLES 1+
[2018-06-02] MEDS ORDERED: NORE5TAB PO (00:50)
[2018-06-02] MEDS ORDERED: PRED20TA PO (00:50)
[2018-06-02] MEDS ORDERED: PROP20TA PO (00:50)
[2018-06-02] MEDS ORDERED: DIVA500T17 PO (00:50)
[2018-06-02] MEDS ORDERED: FURO20TA3 PO (00:50)
[2018-06-02] MEDS ORDERED: METH750T2 PO (00:50)
[2018-06-02] MEDS ORDERED: NAPR-685 PO (00:50)
--- NOTE | 2018-06-02 01:25 | NUR ---
CHART UP FOR RECHECK. PT RESTING ON GURNEY IN NAD. VITALS STABLE.
[2018-06-02 02:22] VITALS: BP 129/84
--- NOTE | 2018-06-02 02:22 | NUR ---
Patient/Caregiver given discharge instructions and they have confirmed that they understand the instructions. Patient ambulatory with steady gait.
[2018-06-02] MEDS ORDERED: ALBUTEROL INH (13:33)
[2018-06-02] MEDS ORDERED: ALBU8.5H8 INH (13:33)
== END 2018-06-02 02:24 | disposition home or self-care (01) ==
LOC: ED 06-02
DX: M25.561 Pain in right knee (principal); M25.562 Pain in left knee; R60.0 Localized edema; R94.4 Abnormal results of kidney function studies; G89.29 Other chronic pain; J45.909 Unspecified asthma, uncomplicated; F32.9 Major depressive disorder, single episode, unspecified; F41.1 Generalized anxiety disorder; M19.90 Unspecified osteoarthritis, unspecified site
CPT/HCPCS: 36415; 74022; 80053; 83880; 85025; 93005; 99284

== ENCOUNTER 2018-06-02 12:51 | Inpatient (IN) | payer MEDICAID ==
[~2018-06-02] VITALS: Ht 157.5 cm; Wt 66.2 kg
[~2018-06-02 12:51] MED LIST changes: +DIVA500T17 PO; +FURO20TA3 PO; +METH750T2 PO; +NAPR-685 PO; +NORE5TAB PO; +PRED20TA PO; +PROP20TA PO
--- NOTE | 2018-06-02 12:55 | NUR ---
Note undone in EDM - 06/02/18 at 1300 by SHRAI PT A&OX3, RESP EVEN & UNLABORED, SPEECH CLEAR, SKIN WNL. C/O LT SIDED PAIN FROM HEAD TO TOES; STARTED ABOUT 2099 LAST NOC. VOMITED LAST NOC. IBUPROFEN 600MG LAST NOC. TYLENOL 500MG AT 1000 TODAY. LAST ORAL INTAKE: SOUP LAST 2029 YESTERDAY, GINGERALE SIPS TODAY. LAST BM: A COUPLE OF DAYS AGO. LMP: UNKOWN - IRREG PERIODS. ORAL SURGERY SUNDAY MORNING. NORCO - LAST DOSE 2 DAYS AGO; DENIES ANTIBIOTICS
--- NOTE | 2018-06-02 13:10 | NUR ---
PT REPORT FROM MOUNIKA Medina RN. PT ARRIVED VIA EMS. WAS DC'D FROM [facility] ED EARLIER TODAY. HAS BEEN SEEN AT [facility] FOR KNEE PAIN ON 05/31 & 06/02.
--- NOTE | 2018-06-02 13:25 | NUR ---
PT TEARY. C/O PAIN MID-THIGH TO FEET BILAT. STATES "I CAN'T MOVE MY LEGS". PER EMS REPORT, PT WAS ABLE TO WALK DOWNSTAIRS TO AMBULANCE. DENIES TAKING PAIN MED PRIOR TO EMS ARRIVAL; STATES "THEY GAVE ME SOMETHING IN THE AMBULANCE". CURRENTLY WEARING ARACELY HOSE - STATES SHE APPLIED THEM ON SUNDAY. PEDAL EDEMA BILAT. PEDAL PULSE STRONG & REG BILAT. LEG TEMP COOL TO TOUCH BILAT.
[2018-06-02] MEDS ORDERED: ALBUTEROL INH (13:33)
[2018-06-02] MEDS ORDERED: ALBU8.5H8 INH (13:33)
--- NOTE | 2018-06-02 13:55 | NUR ---
PT WAS AMBULATORY TO & FROM BR W/ ASSIST; GAIT SLOW, LABORED. VOIDED SPECIMEN PROVIDED: OBAQUE, LIGHT YELLOW
[2018-06-02 14:17] LABS: BASOPHILS # (AUTO) 0.01 x10^3/uL (0-0.1); BASOPHILS % (AUTO) 0 % (0-1); EOSINOPHILS % (AUTO) 0 % (1-7); LYMPHOCYTES # (AUTO) 1.25 x10^3/uL (1-3.4); LYMPHOCYTES % (AUTO) 8 % (22-44); MD NO; MEAN CORPUSCULAR HEMOGLOBIN 28.5 pg (27.0-34.8); MEAN CORPUSCULAR HGB CONC 32.3 g/dL (32.4-35.8); MEAN CORPUSCULAR VOLUME 88.2 fL (80-100); MEAN PLATELET VOLUME 8.8 fL (7.4-10.4); MONOCYTES # (AUTO) 1.11 x10^3/uL (0.2-0.8); MONOCYTES % (AUTO) 7 % (2-9); NEUTROPHILS # (AUTO) 13.68 x10^3/uL (1.8-6.8); NEUTROPHILS % (AUTO) 85 % (42-75); PLATELET COUNT 348 x10^3/uL (130-400); RED BLOOD COUNT 4.68 x10^6/uL (3.82-5.3); RED CELL DISTRIBUTION WIDTH 17.1 % (9.6-15.2)
[2018-06-02 14:24] LABS: ALANINE AMINOTRANSFERASE 18 U/L (12-78); ALBUMIN 3.4 g/dL (3.4-5.0); ANION GAP 8 mmol/L (5-15); CALCIUM 8.7 mg/dL (8.5-10.1); CHLORIDE 104 mmol/L (98-107); CREATININE 0.98 mg/dL (0.55-1.02)
[2018-06-02 14:26] LABS: ALKALINE PHOSPHATASE 48 U/L (45-117); BILIRUBIN,TOTAL 0.4 mg/dL (0.2-1.0); CREATINE KINASE, TOTAL 229 U/L (26-192); TOTAL PROTEIN 7.1 g/dL (6.4-8.2)
[2018-06-02 14:41] LABS: MICROSCOPIC INDICATED
[2018-06-02 14:45] LABS: CULTURE INDICATED? NO
[2018-06-02 14:48] LABS: AMPHETAMINE SCREEN, URINE Negative (Negative); BARBITURATE SCREEN, URINE Negative (Negative); BENZODIAZEPINE SCREEN, URINE Negative (Negative); CANNABINOID SCREEN, URINE Negative (Negative); COCAINE SCREEN, URINE Negative (Negative); METHADONE SCREEN, URINE Negative (Negative); OPIATE SCREEN, URINE Positive (Negative)
--- NOTE | 2018-06-02 14:59 | NUR ---
RESTING QUIETLY ON BED W/ SIDE RAILS UP X2. CALL LIGHT W/IN REACH
--- NOTE | 2018-06-02 15:29 | NUR ---
DR PIERRE BS TO DISCUSS POC. PT RESTING QUIETLY ON BED, RESP EVEN & UNLABORED, SPEECH CLEAR. PT CHOOSING TO BE ADMITTED FOR PAIN CONTROL.
[2018-06-02] MEDS ORDERED: ACETAMINOPHEN 500 MG TABLET ONE (15:54)
[2018-06-02] MEDS ORDERED: ACETAMINOPHEN 500 MG TABLET PO ONE (16:00)
--- NOTE | 2018-06-02 16:15 | NUR ---
CRACKERS & JUICE PROVIDED TO PT. HOSPITALIST BS FOR EXAM.
[2018-06-02] MEDS: SODIUM CHLORIDE 0.9% 1,000 ML IV SCH (16:32)
--- NOTE | 2018-06-02 16:36 | NUR ---
PT REPORT TO GADIEL KILGORE FOR ROOM 353
[2018-06-02] MEDS ORDERED: LORazepam 2 MG/ML, 1ML IVPush PRN (17:00)
[2018-06-02] MEDS ORDERED: GABAPENTIN 300 MG CAPSULE PO PRN (17:00)
[2018-06-02] MEDS ORDERED: ONDANSETRON 2MG/ML, 2ML IVPush PRN (17:00)
[2018-06-02] MEDS ORDERED: ONDANSETRON ODT 4 MG PO PRN (17:00)
[2018-06-02 17:06] LABS: C-REACTIVE PROTEIN, QUANT 0.05 mg/dL (0.02-0.49)
[2018-06-02 17:15] LABS: THYROID STIMULATING HORMONE 0.502 mIU/L (0.358-3.740)
[2018-06-02 17:35] LABS: HCT (SEDRATE) 41.3 % (34.6-47.8)
[2018-06-02] MEDS: KETOROLAC 30 MG/1 ML IV PRN (18:20)
[2018-06-02 19:11] VITALS: BP 133/89
[2018-06-02] MEDS: DOCUSATE 100 MG CAPSULE PO SCH (20:17)
[2018-06-02] MEDS: PROPRANOLOL 20 MG TABLET PO SCH (20:17)
[2018-06-02] MEDS: DIVALPROEX 500 MG TAB.ER.24H PO SCH (20:17)
[2018-06-02] MEDS: HEPARIN 5,000 UNITS/ML, 1ML SQ SCH (20:18)
[2018-06-03 01:36] VITALS: BP 99/66
[2018-06-03] MEDS: HEPARIN 5,000 UNITS/ML, 1ML SQ SCH ×3 (04:44→21:49)
[2018-06-03] MEDS: SODIUM CHLORIDE 0.9% 1,000 ML IV SCH (04:44)
[2018-06-03 05:02] LABS: MEAN CORPUSCULAR HEMOGLOBIN 28.1 pg (27.0-34.8); MEAN CORPUSCULAR HGB CONC 31.9 g/dL (32.4-35.8); MEAN CORPUSCULAR VOLUME 88.3 fL (80-100); MEAN PLATELET VOLUME 8.9 fL (7.4-10.4); PLATELET COUNT 264 x10^3/uL (130-400); RED BLOOD COUNT 4.03 x10^6/uL (3.82-5.3); RED CELL DISTRIBUTION WIDTH 17.4 % (9.6-15.2)
[2018-06-03 05:09] LABS: ALANINE AMINOTRANSFERASE 15 U/L (12-78); ALBUMIN 2.4 g/dL (3.4-5.0); ANION GAP 5 mmol/L (5-15); CHLORIDE 105 mmol/L (98-107); CREATININE 0.84 mg/dL (0.55-1.02)
[2018-06-03 05:13] LABS: ALKALINE PHOSPHATASE 42 U/L (45-117); BILIRUBIN,TOTAL 0.2 mg/dL (0.2-1.0); CHOL/HDL RATIO 2.5; CHOLESTEROL, TOTAL 117 mg/dL (140-239); HDL CHOL % 40 % (28-40); HDL CHOLESTEROL (DIRECT) 47 mg/dL (40-60); LDL CHOLESTEROL,CALCULATED 50 mg/dL (54-169); LDL/HDL RATIO 1.1 (0.5-3.0); TOTAL PROTEIN 5.4 g/dL (6.4-8.2); TRIGLYCERIDES 102 mg/dL (50-200); VLDL CHOLESTEROL 20 mg/dL (0-25)
[2018-06-03 05:54] LABS: BASOPHILS # (AUTO) 0.02 x10^3/uL (0-0.1); BASOPHILS % (AUTO) 0 % (0-1); EOSINOPHILS # (AUTO) 0.08 x10^3/uL (0-0.4); EOSINOPHILS % (AUTO) 1 % (1-7); LYMPHOCYTES % (AUTO) 20 % (22-44); MD SCAN; MONOCYTES # (AUTO) 1.65 x10^3/uL (0.2-0.8); MONOCYTES % (AUTO) 14 % (2-9); NEUTROPHILS # (AUTO) 7.68 x10^3/uL (1.8-6.8); NEUTROPHILS % (AUTO) 66 % (42-75)
[2018-06-03 06:39] VITALS: BP 126/86
[2018-06-03] MEDS ORDERED: GADOBUTROL 7.5 MMOL/7.5 ML PFS ONE (08:16)
[2018-06-03] MEDS: BISACODYL 10 MG SUPP PR SCH (09:00)
[2018-06-03] MEDS: POLYETHYLENE GLYCOL 17 GM PACKET PO SCH (09:00)
[2018-06-03] MEDS: NORTRIPTYLINE 25 MG CAPSULE PO SCH (09:43)
[2018-06-03] MEDS: DOCUSATE 100 MG CAPSULE PO SCH ×2 (09:44→21:00)
[2018-06-03] MEDS: PROPRANOLOL 20 MG TABLET PO SCH ×2 (09:44→21:49)
[2018-06-03 13:17] VITALS: BP 128/85
[2018-06-03 19:10] VITALS: BP 122/84
[2018-06-03] MEDS: METHOCARBAMOL 750 MG TABLET PO PRN (20:10)
[2018-06-03] MEDS: DIVALPROEX 500 MG TAB.ER.24H PO SCH (21:49)
[2018-06-04] MEDS: SODIUM CHLORIDE 0.9% 1,000 ML IV SCH ×2 (01:43→14:50)
[2018-06-04 01:50] VITALS: BP 128/88
[2018-06-04 05:11] LABS: MEAN CORPUSCULAR HEMOGLOBIN 28.8 pg (27.0-34.8); MEAN CORPUSCULAR HGB CONC 32.8 g/dL (32.4-35.8); MEAN CORPUSCULAR VOLUME 87.9 fL (80-100); MEAN PLATELET VOLUME 8.8 fL (7.4-10.4); PLATELET COUNT 267 x10^3/uL (130-400); RED BLOOD COUNT 4.26 x10^6/uL (3.82-5.3); RED CELL DISTRIBUTION WIDTH 17.3 % (9.6-15.2)
[2018-06-04 05:23] LABS: ALBUMIN 2.5 g/dL (3.4-5.0); ANION GAP 4 mmol/L (5-15); CHLORIDE 105 mmol/L (98-107)
[2018-06-04 05:28] LABS: ALANINE AMINOTRANSFERASE 15 U/L (12-78); ALKALINE PHOSPHATASE 50 U/L (45-117); BILIRUBIN,TOTAL 0.4 mg/dL (0.2-1.0); CREATININE 0.69 mg/dL (0.55-1.02); TOTAL PROTEIN 5.9 g/dL (6.4-8.2)
[2018-06-04] MEDS: HEPARIN 5,000 UNITS/ML, 1ML SQ SCH ×2 (05:32→14:44)
[2018-06-04 05:42] LABS: BASOPHILS # (AUTO) 0.02 x10^3/uL (0-0.1); BASOPHILS % (AUTO) 0 % (0-1); EOSINOPHILS # (AUTO) 0.22 x10^3/uL (0-0.4); EOSINOPHILS % (AUTO) 2 % (1-7); LYMPHOCYTES # (AUTO) 3.24 x10^3/uL (1-3.4); LYMPHOCYTES % (AUTO) 28 % (22-44); MD SCAN; MONOCYTES # (AUTO) 1.56 x10^3/uL (0.2-0.8); MONOCYTES % (AUTO) 13 % (2-9); NEUTROPHILS # (AUTO) 6.61 x10^3/uL (1.8-6.8); NEUTROPHILS % (AUTO) 57 % (42-75)
[2018-06-04 06:52] VITALS: BP 121/82
[2018-06-04 07:58] LABS: HCT (SEDRATE) 38.9 % (34.6-47.8)
[2018-06-04] MEDS: NORTRIPTYLINE 25 MG CAPSULE PO SCH (08:03)
[2018-06-04] MEDS: PROPRANOLOL 20 MG TABLET PO SCH ×2 (08:04→20:12)
[2018-06-04] MEDS: BISACODYL 10 MG SUPP PR SCH (09:00)
[2018-06-04] MEDS: POLYETHYLENE GLYCOL 17 GM PACKET PO SCH (09:00)
[2018-06-04] MEDS: DOCUSATE 100 MG CAPSULE PO SCH ×2 (09:00→20:13)
[2018-06-04 13:11] VITALS: BP 118/82
[2018-06-04 19:19] VITALS: BP 107/78
[2018-06-04] MEDS: DIVALPROEX 500 MG TAB.ER.24H PO SCH (20:12)
[2018-06-05 03:38] VITALS: BP 102/70
[2018-06-05] MEDS: SODIUM CHLORIDE 0.9% 1,000 ML IV SCH ×2 (04:10→17:09)
[2018-06-05] MEDS: KETOROLAC 30 MG/1 ML IV PRN ×2 (05:19→17:10)
[2018-06-05 07:29] VITALS: BP 108/74
[2018-06-05] MEDS: METHOCARBAMOL 750 MG TABLET PO PRN (08:59)
[2018-06-05] MEDS: PROPRANOLOL 20 MG TABLET PO SCH ×2 (08:59→20:30)
[2018-06-05] MEDS: DOCUSATE 100 MG CAPSULE PO SCH ×2 (08:59→20:30)
[2018-06-05] MEDS: POLYETHYLENE GLYCOL 17 GM PACKET PO SCH (09:00)
[2018-06-05] MEDS: BISACODYL 10 MG SUPP PR SCH (09:00)
[2018-06-05] MEDS: NORTRIPTYLINE 25 MG CAPSULE PO SCH (09:07)
[2018-06-05] MEDS ORDERED: LIDOCAINE-MPF 1%, 5ML ONE (09:37)
[2018-06-05] MEDS ORDERED: SODIUM BICARBONATE 4.0%, 5ML ONE (09:37)
[2018-06-05 11:29] LABS: GLUCOSE, CSF 52 mg/dL (40-80); TOTAL PROTEIN,CSF 19 mg/dL (15-45)
[2018-06-05 13:09] VITALS: BP 119/86
[2018-06-05] MEDS: ACETAMINOPHEN 325 MG TABLET PO PRN (17:10)
[2018-06-05 18:57] VITALS: BP 108/76
[2018-06-05] MEDS: DIVALPROEX 500 MG TAB.ER.24H PO SCH (20:30)
[2018-06-06 00:10] VITALS: BP 114/78
[2018-06-06 04:45] LABS: BASOPHILS # (AUTO) 0.01 x10^3/uL (0-0.1); BASOPHILS % (AUTO) 0 % (0-1); EOSINOPHILS # (AUTO) 0.17 x10^3/uL (0-0.4); EOSINOPHILS % (AUTO) 2 % (1-7); LYMPHOCYTES # (AUTO) 2.54 x10^3/uL (1-3.4); LYMPHOCYTES % (AUTO) 27 % (22-44); MD NO; MEAN CORPUSCULAR HEMOGLOBIN 28.2 pg (27.0-34.8); MEAN CORPUSCULAR VOLUME 88.2 fL (80-100); MEAN PLATELET VOLUME 8.6 fL (7.4-10.4); MONOCYTES # (AUTO) 1.37 x10^3/uL (0.2-0.8); MONOCYTES % (AUTO) 14 % (2-9); NEUTROPHILS # (AUTO) 5.48 x10^3/uL (1.8-6.8); NEUTROPHILS % (AUTO) 57 % (42-75); PLATELET COUNT 255 x10^3/uL (130-400); RED CELL DISTRIBUTION WIDTH 17.6 % (9.6-15.2)
[2018-06-06 04:50] LABS: ANION GAP 6 mmol/L (5-15); CALCIUM 8.3 mg/dL (8.5-10.1); CHLORIDE 106 mmol/L (98-107); CREATININE 0.73 mg/dL (0.55-1.02)
[2018-06-06] MEDS: SODIUM CHLORIDE 0.9% 1,000 ML IV SCH ×2 (06:44→20:31)
[2018-06-06] MEDS: KETOROLAC 30 MG/1 ML IV PRN ×2 (06:48→12:57)
[2018-06-06 07:22] VITALS: BP 110/77
[2018-06-06] MEDS: BISACODYL 10 MG SUPP PR SCH (09:00)
[2018-06-06] MEDS: DOCUSATE 100 MG CAPSULE PO SCH ×2 (09:00→20:30)
[2018-06-06] MEDS: POLYETHYLENE GLYCOL 17 GM PACKET PO SCH (09:00)
[2018-06-06] MEDS: ACETAMINOPHEN 325 MG TABLET PO PRN (09:33)
[2018-06-06] MEDS: NORTRIPTYLINE 25 MG CAPSULE PO SCH (09:35)
[2018-06-06] MEDS: PROPRANOLOL 20 MG TABLET PO SCH ×2 (09:36→20:30)
[2018-06-06 13:30] VITALS: BP 115/84
[2018-06-06 18:58] VITALS: BP 114/78
[2018-06-06] MEDS: DIVALPROEX 500 MG TAB.ER.24H PO SCH (20:30)
[2018-06-06] MEDS ORDERED: SUMATRIPTAN 100 MG TABLET PO PRN (22:30)
[2018-06-07 00:15] VITALS: BP 112/70
[2018-06-07 07:36] VITALS: BP 120/81
[2018-06-07] MEDS: BISACODYL 10 MG SUPP PR SCH (09:00)
[2018-06-07] MEDS: POLYETHYLENE GLYCOL 17 GM PACKET PO SCH (09:00)
[2018-06-07] MEDS: NORTRIPTYLINE 25 MG CAPSULE PO SCH (09:07)
[2018-06-07] MEDS: PROPRANOLOL 20 MG TABLET PO SCH ×2 (09:07→20:21)
[2018-06-07] MEDS: SODIUM CHLORIDE 0.9% 1,000 ML IV SCH ×2 (09:08→23:32)
[2018-06-07] MEDS: DOCUSATE 100 MG CAPSULE PO SCH ×2 (09:14→20:21)
[2018-06-07] MEDS: KETOROLAC 30 MG/1 ML IV PRN ×2 (09:14→15:56)
[2018-06-07 12:21] VITALS: BP 112/75
[2018-06-07 19:14] VITALS: BP 112/75
[2018-06-07] MEDS: DIVALPROEX 500 MG TAB.ER.24H PO SCH (20:21)
[2018-06-08 01:08] VITALS: BP 120/77
[2018-06-08 07:36] VITALS: BP 126/94
[2018-06-08] MEDS: POLYETHYLENE GLYCOL 17 GM PACKET PO SCH (10:19)
[2018-06-08] MEDS: BISACODYL 10 MG SUPP PR SCH (10:19)
[2018-06-08] MEDS: DOCUSATE 100 MG CAPSULE PO SCH ×2 (10:19→20:17)
[2018-06-08] MEDS: SODIUM CHLORIDE 0.9% 1,000 ML IV SCH (10:35)
[2018-06-08] MEDS: PROPRANOLOL 20 MG TABLET PO SCH ×2 (10:35→20:16)
[2018-06-08] MEDS: NORTRIPTYLINE 25 MG CAPSULE PO SCH (10:35)
[2018-06-08 13:15] VITALS: BP 114/79
[2018-06-08] MEDS ORDERED: CYANOCOBALAMIN 1,000 MCG/ML, 1ML IM ONE (14:30)
[2018-06-08 18:34] VITALS: BP 109/74
[2018-06-08] MEDS: DIVALPROEX 500 MG TAB.ER.24H PO SCH (20:16)
[2018-06-08] MEDS: METHOCARBAMOL 750 MG TABLET PO PRN (23:18)
[2018-06-09 00:54] VITALS: BP 115/80
[2018-06-09] MEDS: SODIUM CHLORIDE 0.9% 1,000 ML IV SCH (04:00)
[2018-06-09 07:21] VITALS: BP 114/72
[2018-06-09] MEDS ORDERED: CYAN10005 PO (07:47)
[2018-06-09] MEDS: POLYETHYLENE GLYCOL 17 GM PACKET PO SCH (08:55)
[2018-06-09] MEDS: DOCUSATE 100 MG CAPSULE PO SCH (08:55)
[2018-06-09] MEDS: BISACODYL 10 MG SUPP PR SCH (08:55)
[2018-06-09] MEDS: METHOCARBAMOL 750 MG TABLET PO PRN (08:59)
[2018-06-09] MEDS: NORTRIPTYLINE 25 MG CAPSULE PO SCH (08:59)
[2018-06-09] MEDS: PROPRANOLOL 20 MG TABLET PO SCH (08:59)
[2018-06-09] MEDS ORDERED: CYANOCOBALAMIN 1,000 MCG TABLET PO SCH (09:00)
== END 2018-06-09 12:41 | disposition home or self-care (01) | DRG 641 ==
LOC: ED 13:12 → EDIP 16:38 → 3NE 17:00
PROVIDERS: ADMIT Hospitalist; ATTEND Hospitalist
PROC: 009U3ZX Drainage of Spinal Canal, Percutaneous Approach, Diagnostic (ICD-10-PCS; principal; 2018-06-05)
PROC: B01B1ZZ Fluoroscopy of Spinal Cord using Low Osmolar Contrast (ICD-10-PCS; 2018-06-05)
DX: E53.8 Deficiency of other specified B group vitamins (principal); F32.9 Major depressive disorder, single episode, unspecified; F41.9 Anxiety disorder, unspecified; G43.909 Migraine, unspecified, not intractable, without status migrainosus; M48.02 Spinal stenosis, cervical region; M79.7 Fibromyalgia; G62.9 Polyneuropathy, unspecified; R00.0 Tachycardia, unspecified; R60.0 Localized edema
CPT/HCPCS: 0399T; 36415; 70553; 72156; 72157; 72158; 77003; 80048; 80053; 80061; 80307; 81001; 82040; 82042; 82550; 82607; 82784; 82945; 83735; 83873; 84100; 84157; 84166; 84443; 85025; 85651; 85730; 86038; 86140; 86430; 87252; 89051; 93306; 99285; A9585; G0378; J1644; J1885; Q0162; J3420; J7030

== ENCOUNTER 2018-08-06 17:27 | Emergency (ER) | payer MEDICAID ==
[~2018-08-06] VITALS: Ht 162.6 cm; Wt 62.0 kg
[~2018-08-06 17:27] MED LIST changes: +ALBU8.5H8 INH; +ALBUTEROL INH; +CYAN10005 PO
[2018-08-06 18:01] VITALS: BP 134/93
--- NOTE | 2018-08-06 18:25 | NUR ---
"I'M PRETTY SURE I HAVE STREP THROAT"
--- NOTE | 2018-08-06 19:12 | NUR ---
given dc isntruction pt up ambulated to check out
== END 2018-08-06 19:14 | disposition home or self-care (01) ==
LOC: ED 19:08
DX: J02.0 Streptococcal pharyngitis (principal); G89.29 Other chronic pain
CPT/HCPCS: 99283

== ENCOUNTER 2018-09-01 21:10 | Emergency (ER) | payer MEDICAID ==
[~2018-09-01] VITALS: Ht 162.6 cm; Wt 62.1 kg
[2018-09-01 21:12] VITALS: BP 126/87
[2018-09-01] MEDS ORDERED: LIDOCAINE-MPF 1%, 5ML ONE (21:40)
[2018-09-01] MEDS ORDERED: BUPIVACAINE 0.25% ONE (21:40)
[2018-09-01] MEDS ORDERED: BUPIVACAINE/PF-EPI 0.25% 1:200K SQ ONE (22:00)
[2018-09-01] MEDS ORDERED: LIDOCAINE-MPF 1%, 5ML INFIL ONE (22:00)
--- NOTE | 2018-09-01 22:04 | NUR ---
DC EDUCATION PROVIDED, PT DEMONSTRATES UNDERSTANDING. PT AMBULATED STEADILY TO DC WITH RN
== END 2018-09-01 22:06 | disposition home or self-care (01) ==
LOC: ED 21:37
DX: K08.89 Other specified disorders of teeth and supporting structures (principal); F41.1 Generalized anxiety disorder; G43.909 Migraine, unspecified, not intractable, without status migrainosus; J45.909 Unspecified asthma, uncomplicated; M19.90 Unspecified osteoarthritis, unspecified site; M54.9 Dorsalgia, unspecified; G89.29 Other chronic pain; Z72.9 Problem related to lifestyle, unspecified; F17.210 Nicotine dependence, cigarettes, uncomplicated; F32.9 Major depressive disorder, single episode, unspecified
CPT/HCPCS: 64400; 99284

== ENCOUNTER 2018-10-04 18:40 | Emergency (ER) | payer MEDICAID ==
[~2018-10-04] VITALS: Ht 162.6 cm; Wt 62.1 kg
[2018-10-04 18:47] VITALS: BP 100/58
[2018-10-04] MEDS ORDERED: LIDOCAINE-MPF 1%, 5ML INFIL ONE (19:00)
[2018-10-04] MEDS ORDERED: LIDOCAINE-MPF 1%, 5ML ONE (19:12)
[2018-10-04] MEDS ORDERED: LIDOCAINE 1%-EPI 1:100K, 20ML ONE (19:16)
== END 2018-10-04 20:35 | disposition home or self-care (01) ==
LOC: ED 20:21
DX: L02.411 Cutaneous abscess of right axilla (principal); R07.89 Other chest pain; G43.909 Migraine, unspecified, not intractable, without status migrainosus; J45.909 Unspecified asthma, uncomplicated; G89.29 Other chronic pain
CPT/HCPCS: 10060; 71046; 93005; 99283

== ENCOUNTER 2018-10-05 19:15 | Emergency (ER) | payer MEDICAID ==
[~2018-10-05] VITALS: Ht 162.6 cm; Wt 62.1 kg
[2018-10-05 19:17] VITALS: BP 131/93
[2018-10-05 19:51] LABS: ALBUMIN 3.6 g/dL (3.4-5.0); ANION GAP 5 mmol/L (5-15); CALCIUM 8.7 mg/dL (8.5-10.1); CHLORIDE 107 mmol/L (98-107); CREATININE 0.82 mg/dL (0.55-1.02)
[2018-10-05 19:52] LABS: BASOPHILS # (AUTO) 0.02 x10^3/uL (0-0.1); BASOPHILS % (AUTO) 0 % (0-1); EOSINOPHILS # (AUTO) 0.16 x10^3/uL (0-0.4); EOSINOPHILS % (AUTO) 2 % (1-7); LYMPHOCYTES # (AUTO) 2.68 x10^3/uL (1-3.4); LYMPHOCYTES % (AUTO) 32 % (22-44); MD NO; MEAN CORPUSCULAR HEMOGLOBIN 28.3 pg (27.0-34.8); MEAN CORPUSCULAR HGB CONC 31.9 g/dL (32.4-35.8); MEAN CORPUSCULAR VOLUME 88.8 fL (80-100); MEAN PLATELET VOLUME 9.2 fL (7.4-10.4); MONOCYTES # (AUTO) 0.92 x10^3/uL (0.2-0.8); MONOCYTES % (AUTO) 11 % (2-9); NEUTROPHILS # (AUTO) 4.64 x10^3/uL (1.8-6.8); NEUTROPHILS % (AUTO) 55 % (42-75); PLATELET COUNT 280 x10^3/uL (130-400); RED BLOOD COUNT 4.72 x10^6/uL (3.82-5.3); RED CELL DISTRIBUTION WIDTH 17.1 % (9.6-15.2)
--- NOTE | 2018-10-05 20:02 | NUR ---
PT TO ROOM FROM LOBBY, C/O BLOOD IN URINE WITH ABD CRAMPING AND BACK PAIN. PT STATES SHE HAS ENDOMETRIOSIS AND DOES NOT HAVE PERIODS HOWEVER HAS SPOTTING BUT THIS IS DIFFERENT. FRIEND AT BEDSIDE. URINE WALKED TO LAB
[2018-10-05 20:14] LABS: MICROSCOPIC NOT IND
[2018-10-05 20:18] LABS: CULTURE INDICATED? NO
[2018-10-05] MEDS ORDERED: ONDANSETRON ODT 4 MG PO PRN ×2 (21:00)
[2018-10-05] MEDS ORDERED: KETOROLAC 30 MG/1 ML IM ONE (21:00)
--- NOTE | 2018-10-05 21:00 | NUR ---
PT RESTING IN GURNEY WITH FRIEND AT BEDSIDE, CALL LIGHT WITHIN REACH. US ORDERED
--- NOTE | 2018-10-05 21:21 | NUR ---
PT TO US
== END 2018-10-05 22:27 | disposition home or self-care (01) ==
LOC: ED 20:23
DX: N30.00 Acute cystitis without hematuria (principal); J45.909 Unspecified asthma, uncomplicated
CPT/HCPCS: 36415; 76830; 80048; 81003; 82040; 84703; 85025; 99284

== ENCOUNTER 2018-10-30 21:50 | Emergency (ER) | payer MEDICAID ==
[~2018-10-30] VITALS: Ht 162.6 cm; Wt 64.1 kg
[2018-10-30 21:53] VITALS: BP 121/85
[2018-10-30] MEDS ORDERED: KETOROLAC 30 MG/1 ML ONE (22:16)
[2018-10-30] MEDS ORDERED: KETOROLAC 30 MG/1 ML IM ONE (22:30)
[2018-10-30 22:42] LABS: HCG UR SG 1.016 (1.003-1.030); MICROSCOPIC AUTO
[2018-10-30 22:44] LABS: CULTURE INDICATED? YES
== END 2018-10-30 23:39 | disposition home or self-care (01) ==
LOC: ED 22:23
DX: M54.16 Radiculopathy, lumbar region (principal); N30.00 Acute cystitis without hematuria; M25.562 Pain in left knee
CPT/HCPCS: 81001; 81025; 87086; 96372; 99283; J1885

== ENCOUNTER 2018-11-13 19:17 | Emergency (ER) | payer MEDICAID, OTHER ==
[~2018-11-13] VITALS: Ht 162.6 cm; Wt 66.9 kg
--- NOTE | 2018-11-13 20:42 | NUR ---
PT STATES THAT SHE IS HAVING LOWER BACK PAIN AND BILATERAL LEG SWELLING. PT WITH HISTORY OF LBP, BUT DENIES PREVIOUS SWELLING. PROVIDED PT WITH GOWN, MONITORS APPLIED, SIDERAILS UP X2, CALL LIGHT WITHIN REACH. AWAITING ERP FOR EVAL AND ORDERS
[2018-11-13] MEDS ORDERED: DIVA125T2 PO (20:46)
[2018-11-13] MEDS ORDERED: KETOROLAC 60 MG/2 ML ONE (21:16)
[2018-11-13] MEDS ORDERED: DIAZEPAM 5 MG TABLET ONE (21:16)
--- NOTE | 2018-11-13 21:21 | NUR ---
pt medicated per mar
[2018-11-13] MEDS ORDERED: DIAZEPAM 5 MG TABLET PO ONE (21:30)
[2018-11-13] MEDS ORDERED: KETOROLAC 30 MG/1 ML IM ONE (21:30)
--- NOTE | 2018-11-13 21:32 | NUR ---
URINE SAMPLE SENT
[2018-11-13 21:57] LABS: MICROSCOPIC AUTO
[2018-11-13 22:06] LABS: CULTURE INDICATED? YES
[2018-11-13 22:10] VITALS: BP 122/79
--- NOTE | 2018-11-13 22:11 | NUR ---
pt resting on [facility], monitors in place, call light within reach. chart up for recheck
[2018-11-13] MEDS ORDERED: SODIUM BICARB IV ONE (22:30)
== END 2018-11-13 22:32 | disposition home or self-care (01) ==
LOC: ED 22:10
DX: R60.0 Localized edema (principal); G89.29 Other chronic pain; M54.5 Low back pain; N30.00 Acute cystitis without hematuria
CPT/HCPCS: 81001; 87086; 96372; 99283; J1885

== ENCOUNTER 2018-12-05 00:14 | Emergency (ER) | payer MEDICAID, OTHER ==
[~2018-12-05] VITALS: Ht 162.6 cm; Wt 6.4 kg
[2018-12-05 00:19] VITALS: BP 119/86
== END 2018-12-05 02:07 | disposition home or self-care (01) ==
LOC: ED 00:39
DX: N30.00 Acute cystitis without hematuria (principal)
CPT/HCPCS: 81001; 81025; 87086; 99283

== ENCOUNTER 2019-04-07 22:09 | Emergency (ER) | payer MEDICAID ==
[~2019-04-07] VITALS: Ht 162.6 cm; Wt 60.1 kg
[~2019-04-07 22:09] MED LIST changes: +CYAN-27 PO; -CYAN10005 PO; +DIVA125T2 PO
[2019-04-07 22:14] VITALS: BP 128/93
--- NOTE | 2019-04-07 22:44 | NUR ---
pt to room from lobby
--- NOTE | 2019-04-07 23:14 | NUR ---
Taylor brito in EDM - 04/07/19 at 2315 by JS Patient/Caregiver given discharge instructions and they have confirmed that they understand the instructions. Patient ambulatory with steady gait.
--- NOTE | 2019-04-08 00:17 | NUR ---
AWAITING HEAD CT AT THIS TIME, PT IN NAD RESTING ON GURNEY
--- NOTE | 2019-04-08 00:24 | NUR ---
assuming care of pt. awaiting head ct.
--- NOTE | 2019-04-08 01:44 | NUR ---
pt given dc instructions, amb to dc desk, pt verb understanding to f/u with pcp
== END 2019-04-08 01:45 | disposition home or self-care (01) ==
LOC: ED 04-08 00:26
DX: R20.2 Paresthesia of skin (principal); R20.1 Hypoesthesia of skin; R53.1 Weakness; G89.29 Other chronic pain; G43.909 Migraine, unspecified, not intractable, without status migrainosus; J45.909 Unspecified asthma, uncomplicated; Z72.89 Other problems related to lifestyle
CPT/HCPCS: 70450; 99284

== ENCOUNTER 2019-04-15 13:42 | Emergency (ER) ==
[~2019-04-15] VITALS: Ht 162.6 cm; Wt 65.0 kg
[2019-04-15 14:14] LABS: ALANINE AMINOTRANSFERASE 18 U/L (12-78); ALBUMIN 3.3 g/dL (3.4-5.0); CALCIUM 8.6 mg/dL (8.5-10.1); CREATININE 0.82 mg/dL (0.55-1.02)
[2019-04-15] MEDS ORDERED: HYDROmorphone 1 MG/ML, 1ML VIAL ONE (14:17)
[2019-04-15 14:18] LABS: ALKALINE PHOSPHATASE 75 U/L (45-117); BILIRUBIN,TOTAL 0.4 mg/dL (0.2-1.0); TOTAL PROTEIN 6.7 g/dL (6.4-8.2)
[2019-04-15] MEDS ORDERED: ONDANSETRON 2MG/ML, 2ML ONE (14:18)
[2019-04-15 14:21] LABS: ANION GAP 5 mmol/L (5-15); CHLORIDE 112 mmol/L (98-107)
[2019-04-15 14:28] LABS: MICROSCOPIC NOT IND
--- NOTE | 2019-04-15 14:28 | NUR ---
PIV PLACED FROM WHICH LABS WERE DRAWN. PATIENT THEN MEDICATED
[2019-04-15 14:30] LABS: CULTURE INDICATED? NO
[2019-04-15] MEDS ORDERED: ONDANSETRON 2MG/ML, 2ML IVPush ONE (14:30)
[2019-04-15] MEDS ORDERED: SODIUM CHLORIDE FLUSH 10ML SYR IVF ONE (14:30)
[2019-04-15] MEDS ORDERED: HYDROmorphone 2 MG/ML, 1ML IVPush PRN (14:30)
[2019-04-15 14:31] LABS: BASOPHILS # (AUTO) 0.02 x10^3/uL (0-0.1); BASOPHILS % (AUTO) 0 % (0-1); EOSINOPHILS # (AUTO) 0.28 x10^3/uL (0-0.4); EOSINOPHILS % (AUTO) 3 % (1-7); LYMPHOCYTES % (AUTO) 14 % (22-44); MD NO; MEAN CORPUSCULAR HEMOGLOBIN 26.2 pg (27.0-34.8); MEAN CORPUSCULAR HGB CONC 31.5 g/dL (32.4-35.8); MEAN PLATELET VOLUME 9.5 fL (7.4-10.4); MONOCYTES # (AUTO) 1.36 x10^3/uL (0.2-0.8); MONOCYTES % (AUTO) 13 % (2-9); NEUTROPHILS # (AUTO) 7.47 x10^3/uL (1.8-6.8); NEUTROPHILS % (AUTO) 70 % (42-75); PLATELET COUNT 203 x10^3/uL (130-400); RED BLOOD COUNT 3.97 x10^6/uL (3.82-5.3); RED CELL DISTRIBUTION WIDTH 16.1 % (9.6-15.2)
--- NOTE | 2019-04-15 14:57 | NUR ---
with reassessment patient reports pain improved to 6/10 vss on nibp/pox updated on estimated poc
[2019-04-15] MEDS ORDERED: OMNIPAQUE 350 MG/ML, 100ML BOTTLE ONE (15:26)
--- NOTE | 2019-04-15 16:08 | NUR ---
PT. WAS GIVEN DISCHARGE INSTRUCTIONS AND SCRIPTS WITH UNDERSTANDING VERBALIZED ALONG WITH WILLINGNESS TO COMPLY. PT.'S IV WAS DCD, CATH TIP INTACT. PRESSURE HELD WITH HEMOSTASIS ACHIEVED. PT. WAS AMBULATORY TO THE DISCHARGE DESK. VSS.
[2019-04-15 16:09] VITALS: BP 106/66
== END 2019-04-15 16:11 | disposition home or self-care (01) ==
LOC: ED 15:45
DX: R10.31 Right lower quadrant pain (principal); K59.00 Constipation, unspecified; J45.909 Unspecified asthma, uncomplicated; Z90.710 Acquired absence of both cervix and uterus
CPT/HCPCS: 36415; 74177; 80053; 81003; 84703; 85025; 96374; 96375; 99284; J1170; J2405; Q9967

== ENCOUNTER 2019-04-20 00:26 | Emergency (ER) | payer MEDICAID ==
[~2019-04-20] VITALS: Ht 162.6 cm; Wt 63.0 kg
[2019-04-20 00:29] VITALS: BP 129/91
--- NOTE | 2019-04-20 01:21 | NUR ---
pt to room from lobby
--- NOTE | 2019-04-20 01:25 | NUR ---
PT TO ROOM PLACED IN GOWN AND AWAITING ERP AND ORDERS.
[2019-04-20 01:51] LABS: MEAN CORPUSCULAR HEMOGLOBIN 25.4 pg (27.0-34.8); MEAN CORPUSCULAR HGB CONC 31.3 g/dL (32.4-35.8); MEAN CORPUSCULAR VOLUME 81.1 fL (80-100); MEAN PLATELET VOLUME 9.4 fL (7.4-10.4); PLATELET COUNT 230 x10^3/uL (130-400); RED BLOOD COUNT 4.39 x10^6/uL (3.82-5.3); RED CELL DISTRIBUTION WIDTH 16.7 % (9.6-15.2)
[2019-04-20 01:55] LABS: ALANINE AMINOTRANSFERASE 49 U/L (12-78); ALBUMIN 3.3 g/dL (3.4-5.0); ANION GAP 4 mmol/L (5-15); CALCIUM 8.6 mg/dL (8.5-10.1); CHLORIDE 107 mmol/L (98-107); CREATININE 0.82 mg/dL (0.55-1.02)
[2019-04-20 01:58] LABS: ALKALINE PHOSPHATASE 68 U/L (45-117); BILIRUBIN,TOTAL 0.2 mg/dL (0.2-1.0); TOTAL PROTEIN 7.7 g/dL (6.4-8.2)
[2019-04-20] MEDS ORDERED: MAALOX/HYOSCYAMINE/LIDOCAINE 45 ML BTL ONE (01:59)
[2019-04-20] MEDS ORDERED: MAALOX/HYOSCYAMINE/LIDOCAINE 45 ML BTL PO ONE (02:00)
[2019-04-20 02:21] LABS: BASOPHILS # (AUTO) 0.04 x10^3/uL (0-0.1); BASOPHILS % (AUTO) 1 % (0-1); EOSINOPHILS # (AUTO) 0.07 x10^3/uL (0-0.4); EOSINOPHILS % (AUTO) 1 % (1-7); LYMPHOCYTES % (AUTO) 34 % (22-44); MD SCAN; MONOCYTES # (AUTO) 0.48 x10^3/uL (0.2-0.8); MONOCYTES % (AUTO) 10 % (2-9); NEUTROPHILS # (AUTO) 2.68 x10^3/uL (1.8-6.8); NEUTROPHILS % (AUTO) 54 % (42-75)
--- NOTE | 2019-04-20 02:31 | NUR ---
PT IMPROVED AFTER GIC MEDS SND IS IN NO APPARENT DISTRESS AT THIS TIME
== END 2019-04-20 04:03 | disposition home or self-care (01) ==
LOC: ED 01:27
DX: K29.00 Acute gastritis without bleeding (principal); G89.29 Other chronic pain; J45.909 Unspecified asthma, uncomplicated; Z72.89 Other problems related to lifestyle; Z90.710 Acquired absence of both cervix and uterus
CPT/HCPCS: 36415; 80053; 83690; 84703; 85025; 99283

== ENCOUNTER 2019-05-07 19:29 | Emergency (ER) | payer MEDICAID ==
[~2019-05-07] VITALS: Ht 162.6 cm; Wt 63.0 kg
--- NOTE | 2019-05-07 20:04 | NUR ---
Patient ambulated self into room. Changed into gown. Patient is alert, oriented, answers questions clearly and concisely. Reports having pain with breathing starting at 1700 today while at work. Patient attached to monitor, breathing rate and pulsatile oxygenation within normal limits. Resting comfortably as provider walked into room completing assessment. Awaiting orders.
[2019-05-07] MEDS ORDERED: KETOROLAC 60 MG/2 ML ONE (20:14)
[2019-05-07] MEDS ORDERED: KETOROLAC 30 MG/1 ML IM ONE (20:30)
[2019-05-07] MEDS ORDERED: DEXAMETHASONE 4 MG TABLET ONE (20:46)
[2019-05-07 20:56] VITALS: BP 116/82
[2019-05-07] MEDS ORDERED: DEXAMETHASONE 4 MG TABLET PO ONE (21:00)
== END 2019-05-07 21:05 | disposition home or self-care (01) ==
LOC: ED 19:55
DX: M94.0 Chondrocostal junction syndrome [Tietze] (principal); G89.29 Other chronic pain; M19.90 Unspecified osteoarthritis, unspecified site; J45.909 Unspecified asthma, uncomplicated; Z90.710 Acquired absence of both cervix and uterus
CPT/HCPCS: 71046; 93005; 96372; 99283; J1885

== ENCOUNTER 2019-05-12 05:49 | Emergency (ER) | payer MEDICAID ==
[~2019-05-12] VITALS: Ht 160 cm; Wt 66.9 kg
[2019-05-12 05:52] VITALS: BP 114/78
--- NOTE | 2019-05-12 06:01 | NUR ---
PT PRESENTED WITH C/O LEFT INDEX FINGER PAIN AFTER CRACKING HER KNUCKLES YESTERDAY. + PAIN AND SWELLING
--- NOTE | 2019-05-12 06:20 | NUR ---
XRAY AT BEDSIDE
[2019-05-12] MEDS ORDERED: IBUPROFEN 200 MG TABLET ONE (06:21)
--- NOTE | 2019-05-12 06:29 | NUR ---
PT MEDICATED PER MAR
[2019-05-12] MEDS ORDERED: IBUPROFEN 200 MG TABLET PO ONE (06:30)
--- NOTE | 2019-05-12 06:53 | NUR ---
REPORT GIVEN TO GADIEL WATERS
--- NOTE | 2019-05-12 06:55 | NUR ---
Received bedside report from GADIEL Loomis. All questions answered. Pt sittin on mehdi. Pt states, "the motrin didn't help much, sitting here the pain is like a 7, when I move it is like an 8." tax associate at bedside applying splint per EDMD order. Pending xray results and EDMD to see. No needs expressed at this time. Call light within reach.
--- NOTE | 2019-05-12 08:11 | NUR ---
Patient given discharge instructions and they have confirmed that they understand the instructions. Patient ambulatory with steady gait. Pt left with Rx, D/C paperwork, and all personal belongings. NADN. No needs expressed.
== END 2019-05-12 08:13 | disposition home or self-care (01) ==
LOC: ED 05:58
DX: M79.645 Pain in left finger(s) (principal); M77.9 Enthesopathy, unspecified
CPT/HCPCS: 29130; 99283

== ENCOUNTER 2019-05-24 13:37 | Emergency (ER) | payer MEDICAID ==
[~2019-05-24] VITALS: Ht 160 cm; Wt 64.0 kg
[2019-05-24] MEDS ORDERED: ONDANSETRON ODT 4 MG PO ONE (14:00)
[2019-05-24] MEDS ORDERED: MAALOX/HYOSCYAMINE/LIDOCAINE 45 ML BTL PO ONE (14:00)
[2019-05-24] MEDS ORDERED: MAALOX/HYOSCYAMINE/LIDOCAINE 45 ML BTL ONE (14:06)
[2019-05-24] MEDS ORDERED: ONDANSETRON ODT 4 MG ONE (14:06)
[2019-05-24] MEDS ORDERED: FERROUS SULFATE (14:11)
[2019-05-24] MEDS ORDERED: MUSCLE RELAXER (14:11)
[2019-05-24] MEDS ORDERED: [UNRECOGNIZED DRUG - OTHER] (14:11)
[2019-05-24] MEDS ORDERED: OMEP20TA62 PO (14:11)
[2019-05-24 14:28] LABS: ALBUMIN 3.6 g/dL (3.4-5.0); ANION GAP 7 mmol/L (5-15); CALCIUM 9.1 mg/dL (8.5-10.1); CHLORIDE 104 mmol/L (98-107)
[2019-05-24 14:36] LABS: ALANINE AMINOTRANSFERASE 37 U/L (12-78); ALKALINE PHOSPHATASE 86 U/L (45-117); BILIRUBIN,TOTAL 0.5 mg/dL (0.2-1.0); CREATININE 0.85 mg/dL (0.55-1.02); MEAN CORPUSCULAR HEMOGLOBIN 25.2 pg (27.0-34.8); MEAN CORPUSCULAR HGB CONC 31.5 g/dL (32.4-35.8); MEAN PLATELET VOLUME 8.8 fL (7.4-10.4); PLATELET COUNT 286 x10^3/uL (130-400); RED BLOOD COUNT 4.75 x10^6/uL (3.82-5.3); RED CELL DISTRIBUTION WIDTH 18.7 % (9.6-15.2); TOTAL PROTEIN 7.8 g/dL (6.4-8.2)
[2019-05-24 14:53] LABS: BASOPHILS # (AUTO) 0.03 x10^3/uL (0-0.1); BASOPHILS % (AUTO) 0 % (0-1); EOSINOPHILS # (AUTO) 0.27 x10^3/uL (0-0.4); EOSINOPHILS % (AUTO) 4 % (1-7); LYMPHOCYTES # (AUTO) 1.92 x10^3/uL (1-3.4); LYMPHOCYTES % (AUTO) 25 % (22-44); MONOCYTES # (AUTO) 0.84 x10^3/uL (0.2-0.8); MONOCYTES % (AUTO) 11 % (2-9); NEUTROPHILS % (AUTO) 60 % (42-75)
[2019-05-24 14:54] LABS: MD SCAN
--- NOTE | 2019-05-24 15:00 | NUR ---
NO EMESIS AFTER ORDERED ZOFRAN. PT RESTING CALMLY IN BED PLAYING ON PHONE. WILL CONTINUE TO MONITOR.
[2019-05-24 15:13] LABS: MICROSCOPIC NOT IND
[2019-05-24 15:17] LABS: CULTURE INDICATED? NO
[2019-05-24 16:25] VITALS: BP 113/64
[2019-05-25] MEDS ORDERED: PREG300C PO (09:40)
[2019-05-25] MEDS ORDERED: DULO20CA45 PO (09:40)
== END 2019-05-24 16:24 | disposition home or self-care (01) ==
LOC: ED 14:27
DX: K29.00 Acute gastritis without bleeding (principal); M79.7 Fibromyalgia; Z90.710 Acquired absence of both cervix and uterus
CPT/HCPCS: 36415; 80053; 81003; 83690; 85025; 99283; Q0162

== ENCOUNTER 2019-05-25 08:05 | Emergency (ER) | payer MEDICAID ==
[~2019-05-25] VITALS: Ht 160 cm; Wt 63.0 kg
[~2019-05-25 08:05] MED LIST changes: +FERROUS SULFATE; +MUSCLE RELAXER; +OMEP20TA62 PO; +[UNRECOGNIZED DRUG - OTHER]
[2019-05-25 09:05] LABS: ALBUMIN 3.6 g/dL (3.4-5.0); ANION GAP 4 mmol/L (5-15); CALCIUM 8.9 mg/dL (8.5-10.1); CHLORIDE 106 mmol/L (98-107); CREATININE 0.92 mg/dL (0.55-1.02)
--- NOTE | 2019-05-25 09:18 | NUR ---
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
[2019-05-25 09:36] LABS: BASOPHILS # (AUTO) 0.04 x10^3/uL (0-0.1); BASOPHILS % (AUTO) 1 % (0-1); EOSINOPHILS # (AUTO) 0.27 x10^3/uL (0-0.4); EOSINOPHILS % (AUTO) 4 % (1-7); LYMPHOCYTES # (AUTO) 1.73 x10^3/uL (1-3.4); LYMPHOCYTES % (AUTO) 26 % (22-44); MD SCAN; MEAN CORPUSCULAR HEMOGLOBIN 24.8 pg (27.0-34.8); MEAN CORPUSCULAR VOLUME 80.2 fL (80-100); MEAN PLATELET VOLUME 9.3 fL (7.4-10.4); MONOCYTES # (AUTO) 0.54 x10^3/uL (0.2-0.8); MONOCYTES % (AUTO) 8 % (2-9); NEUTROPHILS # (AUTO) 4.02 x10^3/uL (1.8-6.8); NEUTROPHILS % (AUTO) 61 % (42-75); PLATELET COUNT 329 x10^3/uL (130-400); RED BLOOD COUNT 5.56 x10^6/uL (3.82-5.3); RED CELL DISTRIBUTION WIDTH 20.5 % (9.6-15.2)
[2019-05-25] MEDS ORDERED: DULO20CA45 PO (09:40)
[2019-05-25] MEDS ORDERED: PREG300C PO (09:40)
[2019-05-25] MEDS ORDERED: morphine SULFATE 10 MG/ML, 1ML IVPush ONE (10:30)
[2019-05-25] MEDS ORDERED: KETOROLAC 30 MG/1 ML IVPush ONE (10:30)
[2019-05-25] MEDS ORDERED: MORPHINE SULFATE 4 MG/ML, 1ML ONE (10:39)
[2019-05-25] MEDS ORDERED: KETOROLAC 30 MG/1 ML ONE (10:39)
--- NOTE | 2019-05-25 11:06 | NUR ---
PT DENIES ANY CHANGE IN PAIN
[2019-05-25 11:15] LABS: HCT (SEDRATE) 40.8 % (34.6-47.8)
[2019-05-25 12:58] VITALS: BP 113/77
== END 2019-05-25 13:00 | disposition home or self-care (01) ==
LOC: ED 09:27
DX: M13.822 Other specified arthritis, left elbow (principal); M13.821 Other specified arthritis, right elbow; M13.832 Other specified arthritis, left wrist; J45.909 Unspecified asthma, uncomplicated; Z90.710 Acquired absence of both cervix and uterus
CPT/HCPCS: 36415; 80048; 82040; 85025; 85651; 86140; 93005; 96374; 96375; 99284; J1885; J2270

== ENCOUNTER 2019-06-10 17:05 | Emergency (ER) | payer MEDICAID ==
[~2019-06-10] VITALS: Ht 160 cm; Wt 60.0 kg
[~2019-06-10 17:05] MED LIST changes: +DULO20CA45 PO; +PREG300C PO
[2019-06-10 17:32] VITALS: BP 144/91
--- NOTE | 2019-06-10 17:40 | NUR ---
PT HERE FOR EVALUATION OF RIGHT ARMPIT ABSCESS, PT STATES SHE ATTEMPTED TO I&D AT HOME.
== END 2019-06-10 19:16 ==
LOC: ED 18:58
DX: L02.411 Cutaneous abscess of right axilla (principal); G89.29 Other chronic pain; G43.909 Migraine, unspecified, not intractable, without status migrainosus; J45.909 Unspecified asthma, uncomplicated; Z90.710 Acquired absence of both cervix and uterus
CPT/HCPCS: 99283

== ENCOUNTER 2019-07-13 12:00 | Emergency (ER) | payer MEDICAID ==
[~2019-07-13] VITALS: Ht 160 cm; Wt 61.8 kg
[2019-07-13 12:05] VITALS: BP 132/88
--- NOTE | 2019-07-13 12:12 | NUR ---
PT AMBULATED BACK TO ROOM WITHOUT DIFFICULTY.
--- NOTE | 2019-07-13 12:20 | NUR ---
MAXIMINO SARMIENTO AT .
--- NOTE | 2019-07-13 12:40 | NUR ---
R AXILLA DRESSING APPLIED: XEROFORM, STERILE GAUZE, TAPE. WOUND CARE INSTRUCTIONS & EXTRA SUPPLIES PROVIDED TO PT. D/C INSTRUCTIONS, MEDS & F/U APPT RV'WD WITH PT, SHE VERBALIZES UNDERSTANDING. RX GIVEN X1. PT AMBULATED OUT OF ED WITHOUT DIFFICULTY.
== END 2019-07-13 13:29 | disposition home or self-care (01) ==
LOC: ED 13:00
DX: Z48.01 Encounter for change or removal of surgical wound dressing (principal); Z90.710 Acquired absence of both cervix and uterus
CPT/HCPCS: 99283

== ENCOUNTER 2019-12-19 23:51 | Emergency (ER) | payer MEDICAID ==
[~2019-12-19] VITALS: Ht 160 cm; Wt 53.0 kg
[2019-12-19 23:54] VITALS: BP 132/84
[2019-12-20] MEDS ORDERED: SODIUM CHLORIDE 0.9% 1,000ML IVBOLUS ONE (00:30)
[2019-12-20 00:42] LABS: BASOPHILS # (AUTO) 0.04 x10^3/uL (0-0.1); BASOPHILS % (AUTO) 1 % (0-1); EOSINOPHILS % (AUTO) 0 % (1-7); LYMPHOCYTES # (AUTO) 0.68 x10^3/uL (1-3.4); LYMPHOCYTES % (AUTO) 8 % (22-44); MD NO; MEAN CORPUSCULAR HEMOGLOBIN 27.3 pg (27.0-34.8); MEAN CORPUSCULAR HGB CONC 32.1 g/dL (32.4-35.8); MEAN CORPUSCULAR VOLUME 85.1 fL (80-100); MEAN PLATELET VOLUME 9.8 fL (7.4-10.4); MONOCYTES # (AUTO) 0.66 x10^3/uL (0.2-0.8); MONOCYTES % (AUTO) 7 % (2-9); NEUTROPHILS # (AUTO) 7.73 x10^3/uL (1.8-6.8); NEUTROPHILS % (AUTO) 85 % (42-75); PLATELET COUNT 244 x10^3/uL (130-400); RED BLOOD COUNT 4.97 x10^6/uL (3.82-5.3)
[2019-12-20 00:47] LABS: HCG UR SG 1.019 (1.003-1.030)
[2019-12-20 00:48] LABS: MICROSCOPIC INDICATED
[2019-12-20 00:54] LABS: ALANINE AMINOTRANSFERASE 14 U/L (12-78); ALBUMIN 3.7 g/dL (3.4-5.0); ANION GAP 6 mmol/L (5-15); CALCIUM 8.8 mg/dL (8.5-10.1); CHLORIDE 108 mmol/L (98-107); CREATININE 1.17 mg/dL (0.55-1.02)
[2019-12-20 00:56] LABS: ALKALINE PHOSPHATASE 76 U/L (45-117); BILIRUBIN,TOTAL 0.3 mg/dL (0.2-1.0); TOTAL PROTEIN 7.8 g/dL (6.4-8.2)
[2019-12-20 00:57] LABS: AMPHETAMINE SCREEN, URINE Positive (Negative); BARBITURATE SCREEN, URINE Negative (Negative); BENZODIAZEPINE SCREEN, URINE Negative (Negative); CANNABINOID SCREEN, URINE Negative (Negative); COCAINE SCREEN, URINE Negative (Negative); METHADONE SCREEN, URINE Positive (Negative); OPIATE SCREEN, URINE Positive (Negative)
[2019-12-20] MEDS ORDERED: CEFTRIAXONE PMX 1GM/50ML 50 ML ONE (01:24)
[2019-12-20] MEDS ORDERED: LORazepam 2 MG/ML, 1ML ONE (01:24)
[2019-12-20] MEDS ORDERED: LORazepam 2 MG/ML, 1ML IVPush ONE (01:30)
[2019-12-20] MEDS ORDERED: CEFTRIAXONE PMX 1GM/50ML 50 ML IV ONE (01:30)
--- NOTE | 2019-12-20 01:58 | NUR ---
PATIENT WAS DISCHARGED PRIOR TO IV ANTIBIOTIC THERAPY. SPOKE WITH MD GUERRERO REGARDING NON-ADMINISTRATION OF ANTIBIOTICS. PATIENT WAS SENT HOME WITH ANTIBIOTIC THERAPY FOR AT HOME ADMINISTRATION PO. PATIENT DID VERBALIZED UNDERSTANDING OF THERAPY AT TIME OF DISCHARGE.
== END 2019-12-20 02:00 | disposition home or self-care (01) ==
LOC: ED 12-20 01:00
DX: N30.01 Acute cystitis with hematuria (principal); F15.129 Other stimulant abuse with intoxication, unspecified; F11.129 Opioid abuse with intoxication, unspecified; J45.909 Unspecified asthma, uncomplicated; Z72.9 Problem related to lifestyle, unspecified; R00.0 Tachycardia, unspecified
CPT/HCPCS: 36415; 80053; 80307; 81001; 81025; 83605; 83690; 84145; 85025; 87086; 93005; 96361; 96365; 96375; 99284; J0696; J2060; J7030

== ENCOUNTER 2020-03-15 05:03 | Emergency (ER) | payer MEDICAID ==
[~2020-03-15] VITALS: Ht 160 cm; Wt 54.9 kg
--- NOTE | 2020-03-15 05:28 | NUR ---
Pt comes in with complaints of left hand pain from dropping a couch on her fingers tips. Patients states especially her middle and ring finger hurt the worse. Patient given ice to apply and is rest at this time. Waiting on xray.
[2020-03-15 06:19] VITALS: BP 126/80
== END 2020-03-15 06:21 | disposition home or self-care (01) ==
LOC: ED 06:03
DX: S60.032A Contusion of left middle finger without damage to nail, initial encounter (principal); S60.042A Contusion of left ring finger without damage to nail, initial encounter; J45.909 Unspecified asthma, uncomplicated; G89.29 Other chronic pain; G43.909 Migraine, unspecified, not intractable, without status migrainosus; Z90.710 Acquired absence of both cervix and uterus; W23.0XXA Caught, crushed, jammed, or pinched between moving objects, initial encounter; Y93.89 Activity, other specified; Y92.009 Unspecified place in unspecified non-institutional (private) residence as the place of occurrence of the external cause; Y99.8 Other external cause status
CPT/HCPCS: 99283

== ENCOUNTER 2020-06-19 17:01 | Emergency (ER) | payer MEDICAID ==
[~2020-06-19] VITALS: Ht 162.6 cm; Wt 54.6 kg
[~2020-06-19 17:01] MED LIST changes: +METH-640 PO; -METH750T2 PO; -OXYC-302 PO; +OXYC1TAB14 PO
[2020-06-19 17:04] VITALS: BP 117/89
--- NOTE | 2020-06-19 18:53 | NUR ---
PT C/O RIGHT WRIST PAIN FOR THE LAST 2 TO 3 MONTHS. 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 PAIN 10/21. POSTIVE CMS TO EXT. PT DENIES ANY OTHER COMPLAINTS AT THIS TIME.
--- NOTE | 2020-06-19 19:00 | NUR ---
Pt dc'd with written and verbal understanding. Instructions reviewd with brant and she states understanding. Pt with + CSM to splinted fingers. Care of splint gone over with patient. Pt ambulatory out of ED with no difficulties.
== END 2020-06-19 19:03 | disposition home or self-care (01) ==
LOC: ED 18:01
DX: M65.4 Radial styloid tenosynovitis [de Quervain] (principal); G43.909 Migraine, unspecified, not intractable, without status migrainosus; Z90.710 Acquired absence of both cervix and uterus
CPT/HCPCS: 29125; 99283

== ENCOUNTER 2020-07-10 20:50 | Emergency (ER) | payer MEDICAID, OTHER ==
[~2020-07-10] VITALS: Ht 160 cm; Wt 55.0 kg
[2020-07-10 20:59] VITALS: BP 121/94
[2020-07-10] MEDS ORDERED: ACETAMINOPHEN 500 MG TABLET ONE (21:22)
[2020-07-10] MEDS ORDERED: IBUPROFEN 200 MG TABLET ONE (21:22)
[2020-07-10] MEDS ORDERED: ACETAMINOPHEN 500 MG TABLET PO ONE (21:30)
[2020-07-10] MEDS ORDERED: IBUPROFEN 200 MG TABLET PO ONE (21:30)
--- NOTE | 2020-07-10 21:30 | NUR ---
Lunch relief RN, pt medicated by primary nurse. Pt states she has a history of anxiety and fibromyalgia as well as Erythromelalgia. She complains of erythema a swelling to the right ankle after "banging" it work yesterday, the side of register where the belt is. She states she was able to walk on it after the fact and then progressed with erythema and edema today to te right ankle.
== END 2020-07-10 22:29 | disposition home or self-care (01) ==
LOC: ED 22:11
DX: S93.491A Sprain of other ligament of right ankle, initial encounter (principal); K08.89 Other specified disorders of teeth and supporting structures; J45.909 Unspecified asthma, uncomplicated; G89.29 Other chronic pain; Z90.710 Acquired absence of both cervix and uterus; X58.XXXA Exposure to other specified factors, initial encounter; Y93.89 Activity, other specified; Y92.69 Other specified industrial and construction area as the place of occurrence of the external cause; Y99.0 Civilian activity done for income or pay
CPT/HCPCS: 99283